=== PATIENT | male | born 1955 | race Caucasian/White ===

== ENCOUNTER 2023-10-12 09:49 | Outpatient (AMB) | payer OTHER, SELFPAY ==
--- NOTE | 2023-10-12 10:32 | A.OFFPC_ITS ---
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 Intake Note: Pt is here to est care pt see's [facility] Allergies Sulfa (Sulfonamide Antibiotics) Allergy (Intermediate, Verified 10/12/23 10:41) Hives Medication List - Last Reconciled 10/12/23 by Destinee Crespo MD aspirin (Adult Low Dose Aspirin) 81 mg PO DAILY cholecalciferol (vitamin D3) 25 mcg PO DAILY diltiazem HCl 360 mg PO DAILY losartan 50 mg PO DAILY pravastatin 20 mg PO BEDTIME Tobacco use date assessed: 10/12/23 Fall risk assessment: No Falls in past year Last assessed Fall Risk: 10/12/23 Dental Screening Dental Screen Date: 10/12/23 Did you have a dental visit in the last 12 months?: No Did you have a dental problem in the last 6 months where you did not have access to dental care?: No Was dental information given to patient?: Patient has dentist 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 He has been feeling well, with no complaints of chest pain, no shortness of breath, no headache or lightheadedness. Has been compliant with taking his medications. He sees [facility], Dr. Seferino Glover twice a year for follow-up. He has had COVID vaccinations but has not yet had the current booster and has n ot yet had his flu vaccine. He has had PCV 23 in the past and up-to-date with Tdap in has had this Shingrix vaccination. [facility] Medical History (Updated 11/11/23 @ 06:03 by Destinee Crespo MD) History of echocardiogram History of cardioversion History of chronic atrial fibrillation Obesity (BMI 30-39.9) Screening for malignant neoplasm of colon performed Impaired fasting glucose Hyperlipidemia Essential hypertension Chronic atrial fibrillation Surgical History (Updated 10/12/23 @ 10:46 by Destinee Crespo MD) History of eye surgery Social History Housing: House Patient Tobacco Use Status: Former Tobacco user Quit Date: 20 years ago e-Cigarette/Vaping Use: Never Used Second Hand Smoke Exposure: No service: No Current occupational status: employed 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 1. Little interest or pleasure in doing things: not at all 2. Feeling down, depressed, or hopeless: not at all 3. Trouble falling or staying asleep, or sleeping too much: not at all 4. Feeling tired or having little energy: not at all 5. Poor appetite or overeating: not at all 6. Feeling bad about yourself - or that you are a failure or have let yourself or your family down: not at all 7. Trouble concentrating on things, such as reading the newspaper or watching television: not at all 8. Moving or speaking so slowly that other people could have noticed. Or the opposite - being so fidgety or restless that you have been moving around a lot more than usual: not at all 9. Thoughts that you would be better off or of hurting yourself in some way: not at all Total score: 0 Depression Screening Interpretation: Negative Depression Screening Done: Yes 33482 - PHQ-9 Billing: Yes Source: Developed by Drs. eZ Valerio, Celine Sandhu, Bryson Dupree and colleagues, with an educational chantell from [employer]. Thrive Questionnaire Date Thrive assessed: 10/12/23 I am a: Patient What is your living situation today?: I have a steady place to live Within the past 12 months, did the food you bought not last and you didn't have the money to get more?: Never true Within the past 12 months, did you worry whether your food would run out before you got money to buy more?: Never true Do you have trouble paying for medicines?: No Do you have trouble getting transportation to medical appointments?: No Do you have trouble paying your heating and electricity bill?: No Do you have trouble taking care of your child, family member or friend?: No Do you have trouble with day-to-day activities such as bathing, preparing meals, shopping, managing finances, etc.?: No Are you currently unemployed and looking for a job?: No Are you interested in more education?: No AUDIT C Alcohol Use Questionnaire (AUDIT-C) 1. How often do you have a drink containing alcohol?: 2-3 times a week 2. How many drinks containing alcohol do you have on a typical day when you are drinking?: 1 or 2 3. How often do you have six or more drinks on one occasion?: Never Total Score: 3 PATRICIA-7 AMB Questionnaire PATRICIA-7 Date PATRICIA - 7 assessed: 10/12/23 Feeling nervous, anxious, or on edge: 0 = Not at all Not being able to stop or control worryin = Not at all Worrying too much about different things: 0 = Not at all Trouble relaxin = Not at all Being so restless that it is hard to sit still: 0 = Not at all Becoming easily annoyed or irritable: 0 = Not at all Feeling afraid as if something awful might happen: 0 = Not at all Total PATRICIA-7 score (0-4 normal; 5-9 mild; 10-14 moderate; 15-21 severe): 0 Source: Developed by Drs. Ze Valerio, Celine Sandhu, Bryson Dupree and colleagues, with an educational chantell from [employer]. PATRICIA-7 Assessment Billing PATRICIA-7 Assessment Tool: PATRICIA-7 Assessment 73801 Review of Systems Const Reports no additional complaints Eyes Details: seebobby Sakshi , referred to Dr Mccann at [facility] , to be scheduled for cataract surgery in 12/2023 ENT Reports no additional complaints Card Denies chest pain at rest, Denies chest pain with activity, Denies syncope, Denies rapid heart rate, Denies irregular heart rhythm and Denies lightheadedness Resp Reports no additional complaints GI Reports no additional complaints Reports no additional complaints Musc Reports no additional complaints Neuro Reports no additional complaints and Denies syncope Psych Reports no additional complaints Endo Reports no additional complaints Abelardo/Lymph Reports no additional complaints Aller/Immun Reports no additional complaints Physical exam (Primary Care) Vital Signs: Last Vital Signs Pulse 91 10/12/23 10:33 BP 135/78 10/12/23 10:33 Pulse Ox 97 10/12/23 10:33 Oxygen Delivery Method Room Air 10/12/23 10:33 BMI result Body Mass Index 38.3 Tobacco/Smoking Status: Tobacco use Status Tobacco use date assessed 10/12/23 10/12/23 10:42 Patient Tobacco Use Status Former Tobacco user 10/12/23 10:42 e-Cigarette/Vaping Use Never Used 10/12/23 10:42 PHQ-9: PHQ-9 Score PHQ-9: Total score 0 11/11/23 06:16 Depression Screening Interpretation: Negative Thrive Assessment: Date of Thrive Assessment Date Thrive assessed 10/12/23 10/12/23 10:49 Const General: no acute distress and alert Nutritional Appearance: obese Orientation/consciousness: patient oriented x3 HENMT Head: Yes normocephalic and Yes atraumatic Ears: external ears normal, TM's normal bilaterally and EAC's normal General nose exam: Normal external nose present and No nasal discharge present Face and sinus: Yes face symmetric Mouth: Normal oral and palatal mucosa present, lip normal, tongue normal, oropharynx normal and moist mucous membranes Eyes General: appearance normal, both eyes and all related structures Eyelids: Yes eyelids normal Conjunctivae: conjunctivae normal Sclerae: sclerae normal Pupils: Equal, round and reactive pupils present EOM: EOMs intact bilaterally Neck Neck: Yes full ROM, Yes no lymphadenopathy and Yes supple Thyroid: Thyroid normal (non-palpable) Resp Effort & Inspection: normal respiratory effort and able to speak in complete sentences Auscultation: clear to auscultation bilaterally Cardio Rate: regular rate Rhythm: regular rhythm Heart sounds: S1 normal heart sound present and S2 normal heart sound present GI Palpation (GI): Soft to palpation, nontender, no guarding and no masses Auscultation: normal bowel sounds General: Yes no CVA tenderness Back/Spine/Pelvis Back: no CVA tenderness and No back tenderness Skin General skin exam: no rashes or lesions noted Neuro General: patient oriented x3, gait normal, moves all extremities, Normal light touch and pain sensation, no focal motor deficits and CN's II-XI intact bilaterally Cranial nerves: Yes Equal, round and reactive pupils present Cognition (Neuro): normal cognition Gait exam (Neuro): Normal gait present Motor exam (neuro): 5/5 motor strength present throughout Extrem General: Yes normal to inspection, Yes full ROM, Yes no joint enlargement, Yes no pedal edema and Yes normal gait Psych Appearance: grossly normal and well kempt Mental Status: mental status grossly normal Speech and movement: Normal speech and movement present Affect: normal affect Attitude: cooperative Thought process: Normal thought process present Thought content: Normal thought content present Assessment and Plan Assessment & Plan (1) Impaired fasting glucose: Code(s): R73.01 - Impaired fasting glucose Plan: Impaired glucose metabolism O2 at risk for developing diabetes mellitus type 2, as well as heart attack and stroke later on. Lifestyle changes at just weight loss, healthy eating habits, and regular exercise are important, and can prevent the progression to diabetes (2) Hyperlipidemia: Code(s): E78.5 - Hyperlipidemia, unspecified Qualifiers: Hyperlipidemia type: pure hypercholesterolemia Qualified Code(s): E78.00 - Pure hypercholesterolemia, unspecified Plan: Continue with current dose of pravastatin 20 mg at bedtime, fasting lipid panel ordered (3) Essential hypertension: Code(s): I10 - Essential (primary) hypertension Plan: Blood pressure goal is less than 130/80. Continue with losartan 50 mg daily and diltiazem CD 3 60 mg daily. Reinforced importance of following a low sodium diet, getting regular exercise, and lowering stress levels. (4) Obesity (BMI 30-39.9): Code(s): E66.9 - Obesity, unspecified Plan: Discussed need to increase activity and weight reduction Recommended focusing on improving your health instead of dieting. : Eat Mediterranean diet, limit foods high in fat, sugar, and calories, eat slowly, pay attention to portion sizes, plan your meals ahead of time, start regular physical activity 150 minutes of moderate intensity exercise or 90 minutes/week of vigorous exercise and stay well-hydrated (5) History of chronic atrial fibrillation: Code(s): Z86.79 - Personal history of other diseases of the circulatory system Plan: Status post cardioversion , in sinus rhythm since cardioversion as noted on his medical record from previous PCP. Continue aspirin 81 mg per day, on diltiazem HCL 360 mg daily (6) History of cardioversion: Comment: 07/2022 normal sinus since cardioversion Code(s): Z92.89 - Personal history of other medical treatment (7) History of echocardiogram: Comment: 07/2022 LVEF: 55-60%; left atrium is moderately dilated , no aortic stenosis, trace MR, no mitral stenosis Code(s): Z92.89 - Personal history of other medical treatment Orders: Orders Alanine Aminotransferase 11/07/23 R73.01 - Impaired fasting glucose, E66.9 - Obesity, unspecified, E78.5 - Hyperlipidemia, unspecified, I10 - Essential (primary) hypertension, Z12.5 - Encounter for screening for malignant neoplasm of prostate Hemoglobin A1c 11/07/23 R73.01 - Impaired fasting glucose, E66.9 - Obesity, uns pecified, E78.5 - Hyperlipidemia, unspecified, I10 - Essential (primary) hypertension, Z12.5 - Encounter for screening for malignant neoplasm of prostate Vitamin D 25-OH Total 11/07/23 R73.01 - Impaired fasting glucose, E66.9 - Obesity, unspecified, E78.5 - Hyperlipidemia, unspecified, I10 - Essential (primary) hypertension, Z12.5 - Encounter for screening for malignant neoplasm of prostate PSA,Total (Free>4and<10) 11/07/23 R73.01 - Impaired fasting glucose, E66.9 - Obesity, unspecified, E78.5 - Hyperlipidemia, unspecified, I10 - Essential (primary) hypertension, Z12.5 - Encounter for screening for malignant neoplasm of prostate Complete Blood Count Auto Diff 11/07/23 R73.01 - Impaired fasting glucose, E66.9 - Obesity, unspecified, E78.5 - Hyperlipidemia, unspecified, I10 - Essential (primary) hypertension, Z12.5 - Encounter for screening for malignant neoplasm of prostate Aspartate Amino Transferase 11/07/23 R73.01 - Impaired fasting glucose, E66.9 - Obesity, unspecified, E78.5 - Hyperlipidemia, unspecified, I10 - Essential (primary) hypertension, Z12.5 - Encounter for screening for malignant neoplasm of prostate Basic Metabolic Panel Fasting 11/07/23 R73.01 - Impaired fasting glucose, E66.9 - Obesity, unspecified, E78.5 - Hyperlipidemia, unspecified, I10 - Essential (primary) hypertension, Z12.5 - Encounter for screening for malignant neoplasm of prostate Lipid Panel 11/07/23 R73.01 - Impaired fasting glucose, E66.9 - Obesity, unspecified, E78.5 - Hyperlipidemia, unspecified, I10 - Essential (primary) hypertension, Z12.5 - Encounter for screening for malignant neoplasm of prostate Coding Level of Care Code New Pt Level 3 (63194) Diagnoses Impaired fasting glucose R73.01 Pure hypercholesterolemia E78.00 Hyperlipidemia type: pure hypercholesterolemia Essential hypertension I10 Obesity (BMI 30-39.9) E66.9 History of chronic atrial fibrillation Z86.79 History of cardioversion Z92.89 History of echocardiogram Z92.89 Additional Codes PATRICIA-7 Assessment Billing - PATRICIA-7 Assessment Tool: PATRICIA-7 Assessment 12073 ([id number])
[2023-10-12 10:33] VITALS: BP 135/78; PULSE 91; O2SAT 97; BMI 38.3
== END 2023-10-12 11:13 | disposition home or self-care (01) ==
PROVIDERS: PCP Internal Medicine; Visit Provider Internal Medicine
DX: R73.01 Impaired fasting glucose (principal); E66.9 Obesity, unspecified; Z68.38 Body mass index [BMI] 38.0-38.9, adult; E78.00 Pure hypercholesterolemia, unspecified; I10 Essential (primary) hypertension; Z86.79 Personal history of other diseases of the circulatory system; Z92.89 Personal history of other medical treatment
CPT/HCPCS: 99203

== ENCOUNTER 2023-11-25 06:08 | Outpatient (REF) | payer OTHER, SELFPAY ==
[2023-11-25 11:34] LABS: MANUAL DIFF FLAG NO
[2023-11-25 12:06] LABS: Basophils Absolute Auto 0.1 X10*3/uL (0.0-0.2); Basophils Percent Auto 1.3 % (0-2); Eosinophils Absolute Auto 0.4 X10*3/uL (0.0-0.4); Eosinophils Percent Auto 5.7 % (0-4); Hematocrit 49.1 % (42.0-52.0); Hemoglobin 15.9 g/dl (14.0-18.0); Imm Gran Abs Auto 0.02 X10*3/uL (0.00-0.03); Imm Gran Pct Auto 0.3 % (0.0-0.4); Lymphocytes Absolute Auto 1.8 X10*3/uL (1.2-4.9); Lymphocytes Percent Auto 26.5 % (20-40); Mean Corpuscular HGB Conc 32.4 g/dl (31.0-36.0); Mean Corpuscular Hemoglobin 28.8 pg (27.0-33.0); Mean Corpuscular Volume 88.9 fL (80.0-98.0); Mean Platelet Volume 11.7 fL (9.4-12.4); Monocytes Absolute Auto 0.6 X10*3/uL (0.1-1.2); Monocytes Percent Auto 8.6 % (2-11); Neutrophils Absolute Auto 3.9 x10*3/uL (2.0-8.3); Neutrophils Percent Auto 57.6 % (45-73); Platelet Count 215 X10*3/uL (160-400); Red Blood Count 5.52 X10*6/uL (4.60-5.80); Red Cell Distribution Width 14.1 % (11.0-16.0); White Blood Count 6.8 X10*3/uL (4.8-10.8)
[2023-11-25 12:15] LABS: Estimated Average Glucose 108 mg/dL; Hemoglobin A1c % 5.4 % (<6.0)
[2023-11-25 12:30] LABS: Alanine Aminotransferase 24 U/L (0-40); Anion Gap 16 (12-20); Aspartate Amino Transferase 18 U/L (5-37); Blood Urea Nitrogen 12 mg/dL (9-16); Calcium 10.4 mg/dL (8.4-10.2); Carbon Dioxide 27 mmol/L (22-29); Chloride 102 mmol/L (96-108); Cholesterol 175 mg/dL (<200); Estimated Glomerular Filt Rate > 60; Glucose Fasting 102 mg/dL (60-99); HDL Cholesterol 64 mg/dL (>40); LDL Cholesterol Calculated 94 mg/dL (<100); Potassium 4.9 mmol/L (3.3-5.1); Sodium 140 mmol/L (135-145); Triglycerides 86 mg/dL (<150)
[2023-11-25 12:33] LABS: Vitamin D 25-OH Total 25.9 ng/mL (>30)
== END 2023-11-25 06:09 | disposition home or self-care (01) ==
LOC: HO.HMGCLDS 06:08
PROVIDERS: PCP Internal Medicine; Visit Provider Internal Medicine
DX: Z12.5 Encounter for screening for malignant neoplasm of prostate (principal); E66.9 Obesity, unspecified; R73.01 Impaired fasting glucose; I10 Essential (primary) hypertension; E78.5 Hyperlipidemia, unspecified
CPT/HCPCS: 36415; 80048; 80061; 82306; 83036; 84153; 84450; 84460; 85025

== ENCOUNTER 2023-12-15 11:16 | Outpatient (AMB) | payer OTHER, SELFPAY ==
[2023-12-15 11:39] VITALS: BP 145/80; PULSE 97; O2SAT 97; BMI 38.9
--- NOTE | 2023-12-15 11:39 | A.OFFPC_ITS ---
Vital Signs 12/15/23 11:39 Height 5 ft 8 in Weight 256 lb BMI 38.9 BP 145/80 H Blood Pressure Location Lt brachial Position Sitting Pulse 97 Pulse Source Pulse Oximeter Pulse Oximetry (%) 97 Oxygen Delivery Method Room Air Intake Visit Reasons: cataract 12/30/23 & 01/12/24 Intake Note: Pt is here today for his pre-op Lt eye cataract surgery 12/30/23 & Rt eye cataract 01/12/[address] Mccann at [facility] Allergies Sulfa (Sulfonamide Antibiotics) Allergy (Intermediate, Verified 12/15/23 12:10) Hives Medication List - Last Reconciled 12/15/23 by Destinee Crespo MD aspirin (Adult Low Dose Aspirin) 81 mg PO DAILY cholecalciferol (vitamin D3) 1,250 mcg PO QWEEK 3 months diltiazem HCl 360 mg PO DAILY losartan 50 mg PO DAILY pravastatin 40 mg PO BEDTIME Tobacco use date assessed: 12/15/23 Last assessed Fall Risk: 12/15/23 Dental Screening Dental Screen Date: 12/15/23 Did you have a dental visit in the last 12 months?: No Was dental information given to patient?: Patient has dentist HPI cataract 12/30/23 & 01/12/24 HPI Details 68-year-old male with hypertension, hype rlipidemia, history of chronic atrial fibrillation status post cardioversion, now in normal sinus rhythm and only taking aspirin 81 mg daily, here today for preoperative exam for Lt eye cataract surgery 12/30/23 & Rt eye cataract 01/12/[address] Mccann at [facility]. He has been feeling well, with no complaints of any chest pain, no shortness of breath, no lightheadedness or generalized weakness. 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 Depression Screening Interpretation: Negative Depression Screening Done: Yes Source: Developed by Drs. Ze Valerio, Celine Sandhu, Bryson Dupree and colleagues, with an educational chantell from [employer]. Thrive Questionnaire Date Thrive assessed: 10/12/23 AUDIT C Alcohol Use Questionnaire (AUDIT-C) 1. How often do you have a drink containing alcohol?: 4 or more times a week 2. How many drinks containing alcohol do you have on a typical day when you are drinking?: 1 or 2 3. How often do you have six or more drinks on one occasion?: Never Total Score: 4 PATRICIA-7 AMB Questionnaire PATRICIA-7 Date PATRICIA - 7 assessed: 10/12/23 Feeling nervous, anxious, or on edge: 0 = Not at all Not being able to stop or control worryin = Not at all Worrying too much about different things: 0 = Not at all Trouble relaxin = Not at all Being so restless that it is hard to sit still: 0 = Not at all Becoming easily annoyed or irritable: 0 = Not at all Feeling afraid as if something awful might happen: 0 = Not at all Total PATRICIA-7 score (0-4 normal; 5-9 mild; 10-14 moderate; 15-21 severe): 0 Source: Developed by Drs. Ze Valerio, Celine Sandhu, Bryson Dupree and colleagues, with an educational chantell from [employer]. Review of Systems Const Reports no additional complaints Eyes Details: sees Sakshi , referred to Dr Mccann at [facility] , to be scheduled for cataract surgery in 12/2023 ENT Reports no additional complaints Card Denies chest pain at rest, Denies chest pain with activity, Denies syncope, Denies rapid heart rate, Denies irregular heart rhythm and Denies lightheadedness Resp Reports no additional complaints GI Reports no additional complaints Reports no additional complaints Musc Reports no additional complaints Skin/Breast Denies lesions, Denies rash and Denies unusual bruising Neuro Reports no additional complaints and Denies syncope Psych Reports no additional complaints Endo Reports no additional complaints Abelardo/Lymph Reports no additional complaints Aller/Immun Reports no additional complaints Physical exam (Primary Care) Vital Signs: Last Vital Signs Pulse 97 12/15/23 11:39 BP 145/80 H 12/15/23 11:39 Pulse Ox 97 12/15/23 11:39 Oxygen Delivery Method Room Air 12/15/23 11:39 BMI result Body Mass Index 38.9 Tobacco/Smoking Status: Tobacco use Status Tobacco use date assessed 12/15/23 12/15/23 11:42 Patient Tobacco Use Status Former Tobacco user 12/15/23 11:42 e-Cigarette/Vaping Use Never Used 12/15/23 11:42 Depression Screening Interpretation: Negative Thrive Assessment: Date of Thrive Assessment Date Thrive assessed 10/12/23 12/15/23 11:42 Const General: no acute distress and alert Nutritional Appearance: obese Orientation/consciousness: patient oriented x3 HENMT Head: Yes normocephalic and Yes atraumatic Ears: external ears normal, TM's normal bilaterally and EAC's normal General nose exam: Normal external nose present and No nasal discharge present Face and sinus: Yes face symmetric Mouth: Normal oral and palatal mucosa present, lip normal, tongue normal, oropharynx normal and moist mucous membranes Eyes General: appearance normal, both eyes and all related structures Eyelids: Yes eyelids normal Conjunctivae: conjunctivae normal Sclerae: sclerae normal Pupils: Equal, round and reactive pupils present EOM: EOMs intact bilaterally Neck Neck: Yes full ROM, Yes no lymphadenopathy and Yes supple Thyroid: Thyroid normal (non-palpable) Resp Effort & Inspection: normal respiratory effort and able to speak in complete sentences Auscultation: clear to auscultation bilaterally Cardio Rate: regular rate Rhythm: regular rhythm Heart sounds: S1 normal heart sound present and S2 normal heart sound present GI Palpation (GI): Soft to palpation, nontender, no guarding and no masses Auscultation: normal bowel sounds General: Yes no CVA tenderness Back/Spine/Pelvis Back: no CVA tenderness and No back tenderness Skin General skin exam: no rashes or lesions noted Neuro General: patient oriented x3, gait normal, moves all extremities, Normal light touch and pain sensation, no focal motor deficits and CN's II-XI intact bilaterally Cranial nerves: Yes Equal, round and reactive pupils present Cognition (Neuro): normal cognition Gait exam (Neuro): Normal gait present Motor exam (neuro): 5/5 motor strength present throughout Extrem General: Yes normal to inspection, Yes full ROM, Yes no joint enlargement, Yes no pedal edema and Yes normal gait Psych Appearance: grossly normal and well kempt Mental Status: mental status grossly normal Speech and movement: Normal speech and movement present Affect: normal affect Attitude: cooperative Thought process: Normal thought process present Thought content: Normal thought content present Results Reviewed Results Reviewed: SPEC : [id number] JOSE: 11/25/23 STATUS: COMP REQ : [id number] RECD: 11/25/[address]: Destinee Crespo MD COMP: 11/25/23 ENTERED: 11/25/23 [facility] DR: ORDERED: CBC Auto Diff Test Result Flag Reference WBC 6.8 4.8-10.8 X10*3/uL RBC 5.52 4.60-5.80 X10*6/uL HGB 15.9 14.0-18.0 g/dl HCT 49.1 42.0-52.0 % MCV 88.9 80.0-98.0 fL MCH 28.8 27.0-33.0 pg MCHC 32.4 31.0-36.0 g/dl RDW 14.1 11.0-16.0 % PLT 215 160-400 X10*3/uL MPV 11.7 9.4-12.4 fL Neut Pct Auto 57.6 45-73 % ImGran Pct Auto 0.3 0.0-0.4 % Lymp Pct Auto 26.5 20-40 % Bay Pct Auto 8.6 2-11 % Eos Pct Auto 5.7 H 0-4 % Baso Pct Auto 1.3 0-2 % NRBC Pct Auto 0.0 0.0-0.2 /100WBC ANC Neut Abs # 3.9 2.0-8.3 x10*3/uL ImGran Abs Auto 0.02 0.00-0.03 X10*3/uL Lymph Abs Auto 1.8 1.2-4.9 X10*3/uL Bay Abs Auto 0.6 0.1-1.2 X10*3/uL Eos Abs Auto 0.4 0.0-0.4 X10*3/uL Baso Abs Auto 0.1 0.0-0.2 X10*3/uL NRBC Abs Auto 0.000 0.0-0.012 X10*3/uL RUN: 12/15/23 1219 PAGE 1 [facility] [address] [place] [id number] Director Cloud Transformation: Diogo Benitez M.D. Specimen Inquiry Name: Lisandro Deal Age/Sex: 68/M : 1955 Unit#: [id number] Attend Dr: Destinee Crespo MD Re11/25/23 Status: DEP REF Location: [facility] Disch: SPEC : [id number] JOSE: 11/25/23 STATUS: COMP REQ : [id number] RECD: 11/25/[address]: Destinee Crespo MD COMP: 11/25/23 ENTERED: 11/25/[address]: ORDERED: Met Prof Fast, AST, ALT, Lipid Panel, Vitamin D 25-OH Test Result Flag Reference Sodium 140 135-145 mmol/L Potassium 4.9 3.3-5.1 mmol/L CL 102 96-108 mmol/L CO2 27 22-29 mmol/L Gap 16 12-20 BUN 12 9-16 mg/dL Creat 1.03 0.5-1.4 mg/dL EGFR > 60 NOTE: For -[place] individuals, multiply the result by 1.210. Chronic Kidney Disease: Estimated GFR < 60 mL/min/1.73m2 Severe Kidney Disease: Estimated GFR < 15 mL/min/1.73m2 FBS 102 H 60-99 mg/dL A fasting glucose from 100-125 mg/dl is considered impaired (pre-diabetes). CA 10.4 H 8.4-10.2 mg/dL AST (GOT) 18 5-37 U/L ALT (GPT) 24 0-40 U/L Triglyceride 86 <150 mg/dL Desirable Triglyceride: less than 150 mg/dL Borderline High Triglyceride 150-199 mg/dL High Triglyceride: 200-499 mg/dL Very High Triglyceride: greater than or equal to 5OO mg/dL Cholesterol 175 <200 mg/dL Desirable Cholesterol: less than 200 mg/dL Borderline High Cholesterol: 200-239 mg/dL High Cholesterol: greater than 239 mg/dL LDL Calculated 94 <100 mg/dL Desirable LDL: less than 100 mg/dL Near Optimal/Above Optimal LDL: 110-129 mg/dL Borderline High LDL: 130-159 mg/dL High LDL: 160-189 mg/dL Very High LDL: greater than or equal to 190 mg/dL HDL 64 >40 mg/dL Desirable HDL: greater than 40 mg/dL Note: This HDL assay may give artificially low results in patients with liver disease. Vit D 25-OH Tot 25.9 L >30 ng/mL Health Based Reference Values* < 20 ng/mL Deficient 20-30 ng/mL Insufficient > 30 ng/mL Sufficient Assessment and Plan Assessment & Plan (1) Preoperative examination: Code(s): Z01.818 - Encounter for other preprocedural examination Plan: 68 year old male here for pre-op clearance for cataract surgery, to be done by Dr. Rodriguez. He has hypertension, hyperlipidemia currently stable controlled on present treatment, has history of chronic atrial fibrillation status post cardioversion now in normal sinus rhythm and only taking aspirin 81 mg daily. He had a normal preoperative exam, EKG done today showed normal sinus rhythm with occasional premature ventricular contractions, with a rate of 83 beats per minute , no acute ST-T changes seen. Patient with a low cardiac risk index for proposed surgery , no need to discontinue aspirin 81 mg prior to surgery (2) History of chronic atrial fibrillation: Code(s): Z86.79 - Personal history of other diseases of the circulatory system Plan: Continue aspirin 81 mg daily, patient now on normal sinus rhythm currently on diltiazem and losartan (3) Hyperlipidemia: Code(s): E78.5 - Hyperlipidemia, unspecified Qualifiers: Hyperlipidemia type: pure hypercholesterolemia Qualified Code(s): E78.00 - Pure hypercholesterolemia, unspecified Plan: Fasting lipid panel are within normal limits, continued on pravastatin 40 mg at bedtime, in addition to continuing following a low-cholesterol diet and getting regular exercise. Repeat another fasting lipid panel in April 2024, prior to next appoint (4) Essential hypertension: Code(s): I10 - Essential (primary) hypertension Plan: Blood pressure goal is less than 130/80. Continue on diltiazem and losartan. Reinforced importance of following a low sodium diet, getting regular exercise, and lowering stress levels. (5) Cataract: Code(s): H26.9 - Unspecified cataract Qualifiers: Cataract type: age-related Age-related cataract type: unspecified Laterality: bilateral Qualified Code(s): H25.9 - Unspecified age-related cataract Plan: Scheduled for cataract surgery, requested by Dr. Mccann (6) History of cardioversion: Comment: 07/2022 normal sinus since cardioversion Code(s): Z92.89 - Personal history of other medical treatment Orders: Orders Aspartate Amino Transferase 04/30/24 E66.9 - Obesity, unspecified, E78.5 - Hyperlipidemia, unspecified, I10 - Essential (primary) hypertension, R73.01 - Impaired fasting glucose, Z12.5 - Encounter for screening for malignant neoplasm of prostate, Z86.79 - Personal history of other diseases of the circulatory system Lipid Panel 04/30/24 E66.9 - Obesity, unspecified, E78.5 - Hyperlipidemia, unspecified, I10 - Essential (primary) hypertension, R73.01 - Impaired fasting glucose, Z12.5 - Encounter for screening for malignant neoplasm of prostate, Z86.79 - Personal history of other diseases of the circulatory system PSA,Total (Free>4and<10) 04/30/24 E66.9 - Obesity, unspecified, E78.5 - Hyperlipidemia, unspecified, I10 - Essential (primary) hypertension, R73.01 - Impaired fasting glucose, Z12.5 - Encounter for screening for malignant neoplasm of prostate, Z86.79 - Personal history of other diseases of the circulatory system Alanine Aminotransferase 04/30/24 E66.9 - Obesity, unspecified, E78.5 - Hyperlipidemia, unspecified, I10 - Essential (primary) hypertension, R73.01 - Impaired fasting glucose, Z12.5 - Encounter for screening for malignant neoplasm of prostate, Z86.79 - Personal history of other diseases of the circulatory system Basic Metabolic Panel Fasting 04/30/24 E66.9 - Obesity, unspecified, E78.5 - Hyperlipidemia, unspecified, I10 - Essential (primary) hypertension, R73.01 - Impaired fasting glucose, Z12.5 - Encounter for screening for malignant neoplasm of prostate, Z86.79 - Personal history of other diseases of the circulatory system Vitamin D 25-OH Total 04/30/24 E66.9 - Obesity, unspecified, E78.5 - Hyperlipidemia, unspecified, I10 - Essential (primary) hypertension, R73.01 - Impaired fasting glucose, Z12.5 - Encounter for screening for malignant neoplasm of prostate, Z86.79 - Personal history of other diseases of the circulatory system Coding Level of Care Code Est Pt Level 4 (87300) Diagnoses Preoperative examination Z01.818 History of chronic atrial fibrillation Z86.79 Pure hypercholesterolemia E78.00 Hyperlipidemia type: pure hypercholesterolemia Essential hypertension I10 Age-related cataract of both eyes, unspecified age-related cataract type H25.9 Cataract type: age-related Age-related cataract type: unspecified Laterality: bilateral History of cardioversion Z92.89
== END 2023-12-15 12:47 | disposition home or self-care (01) ==
PROVIDERS: PCP Internal Medicine; Visit Provider Internal Medicine
DX: Z01.818 Encounter for other preprocedural examination (principal); Z86.79 Personal history of other diseases of the circulatory system; E78.00 Pure hypercholesterolemia, unspecified; I10 Essential (primary) hypertension; H25.9 Unspecified age-related cataract; Z92.89 Personal history of other medical treatment
CPT/HCPCS: 99214

== ENCOUNTER 2024-03-13 12:29 | Outpatient (AMB) | payer OTHER, SELFPAY ==
[2024-03-13 12:32] VITALS: BP 130/80; PULSE 85; TEMP 36.3; O2SAT 97; BMI 37.7
--- NOTE | 2024-03-13 12:32 | AM.OFFWIN_ITS ---
Intake Vital Signs 03/13/24 12:32 Height 5 ft 8 in Weight 248 lb BMI 37.7 BP 130/80 Blood Pressure Location Lt brachial Position Sitting Pulse 85 Pulse Source Pulse Oximeter Temp 97.3 F Temp Source Temporal Artery Scan Pulse Oximetry (%) 97 Oxygen Delivery Method Room Air Intake Visit Reasons: Est/wheezing, nasal drip (lobby) Intake Note: pt is here today for wheezing and nasal drip started 3 dayd ago Patient Tobacco Use Status: Former Tobacco user Quit Date: 20 years ago Allergies Sulfa (Sulfonamide Antibiotics) Allergy (Intermediate, Verified 03/13/24 13:07) Hives Medication List - Last Reconciled 03/13/24 by LIZET Ray cholecalciferol (vitamin D3) 1,250 mcg PO QWEEK 3 months diltiazem HCl CD 360 mg PO DAILY diltiazem HCl ER 360 mg PO DAILY ketorolac 0.5% 1 drp ophthalmic (eye) losartan 50 mg PO DAILY pravastatin 40 mg PO DAILY rivaroxaban (Xarelto) 20 mg PO DAILY Do you need a note to return to daycare/school/sports/work: No HPI HPI Comments History of Present Illness Details Patient is a 68-year-old male in today for a sick visit. He states for the past 3 days he has developed symptoms of wheeze, cough, nasal discharge. He states that he is having some shortness of breath when he was walking up and down stairs, and recently on a vacation where he was hiking and mountain. Denies sick contacts. Denies chest pain, shortness a breath, headache, nausea, vomiting, diarrhea. Patient denies numbness or tingling. Has a past medical history significant for hypertension, hyperlipidemia, AFib, vitamin-D deficiency. A physical exam patient has erythema and cobblestoning throat. TM intact pearly baer. Clear nasal discharge. No lymphadenopathy. Breath sounds have bilateral upper wheeze. Patient is currently in AFib, which is his baseline. 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 Cognitive needs: No Hearing needs: No Vision needs: Yes Review of Systems Const All systems reviewed & are unremarkable except as noted in HPI and below Denies chills, Denies fatigue and Denies fever(s) ENT Denies dizziness, Denies otalgia, Reports nasal discharge, Reports post nasal drip and Reports sore throat Card Denies chest pain and Denies dyspnea Resp Reports cough, Denies dyspnea and Reports wheezing GI Denies diarrhea, Denies nausea and Denies vomiting Neuro Denies dizziness Endo Denies fatigue Aller/Immun Reports wheezing Physical Exam Vital Signs: Last Vital Signs Temp 97.3 F 03/13/24 12:32 Pulse 85 03/13/24 12:32 BP 130/80 03/13/24 12:32 Pulse Ox 97 03/13/24 12:32 Oxygen Delivery Method Room Air 03/13/24 12:32 BMI result Body Mass Index 37.7 Const Other: Appearance: Alert.? Oriented X3.? No acute distress.? Head: Normocephalic, atraumatic. Eyes: Pupils equal, round and reactive to light.? ENT: Pharynx erythema. +clear nasal discharge, +Post nasal drip. TM intact and pearly baer. Neck: Normal inspection.? Neck supple.?Full ROM. CVS: Normal heart rate and rhythm.? Pulses normal.? Respiratory: No respiratory distress.? Bilateral wheeze upper lobes. Neuro: Oriented X 3.? No motor deficit.? No sensory deficit. CN 2-12 intact Assessment & Plan Assessment & Plan (1) Upper respiratory infection: Comment: Patient had in office URI swab. Will give patient prednisone albuterol to be taken as directed. Patient has been educated on side effects of this medic ation. Patient has been educated on signs of worsening symptoms and when to report to the walk-in or when to present to the ED. Code(s): J06.9 - Acute upper respiratory infection, unspecified Qualifiers: URI type: unspecified URI Qualified Code(s): J06.9 - Acute upper respiratory infection, unspecified Plan: Take your medications as prescribed. If you were prescribed antibiotics today, it is important that you take your medication to their entirety, do not skip any doses, do not finish them early. Follow-up with your primary care provider this week. Return to the emergency department with new or worsening symptoms. Such as fevers, chills, chest pain, shortness of breath, nausea, vomiting, dizziness, headache, vision changes, lethargy In case of emergency call 911 Plan Follow-up with PCP. Orders: Orders SARS-CoV2/FLU/RSV Today J06.9 - Acute upper respiratory infection, unspecified Medications: New prednisone 40 mg (2 x 20 mg) PO DAILY 10 tabs 0RF albuterol sulfate 90 mcg/actuation 2 puffs inhalation Q6H PRN 6.7 grams 0RF shortness of breath or wheezing Coding Level of Care Code Est Pt Level 3 (83877) Diagnoses Upper respiratory tract infection, unspecified type J06.9 URI type: unspecified URI Time Spent (min) 27
== END 2024-03-13 13:22 | disposition home or self-care (01) ==
PROVIDERS: PCP Internal Medicine; Visit Provider Nurse Practitioner Primary Care
DX: J06.9 Acute upper respiratory infection, unspecified (principal)
CPT/HCPCS: 99213

== ENCOUNTER 2024-03-13 16:18 | Outpatient (REF) | payer OTHER, SELFPAY ==
[2024-03-13 17:06] LABS: Influenza A PCR NEGATIVE (Negative); Influenza B PCR NEGATIVE (Negative); Resp Syncy Virus RNA Qual PCR NEGATIVE (Negative); SARS COV2 PCR INHOUSE NEGATIVE (Negative)
== END 2024-03-13 16:19 | disposition home or self-care (01) ==
LOC: HO.LNP 16:18
PROVIDERS: Visit Provider Nurse Practitioner Primary Care
DX: J06.9 Acute upper respiratory infection, unspecified (principal)
CPT/HCPCS: 0241U

== ENCOUNTER 2024-03-17 09:41 | Outpatient (AMB) | payer OTHER, SELFPAY ==
[2024-03-17 10:57] VITALS: BP 140/80; PULSE 71; TEMP 36.7; BMI 37.4
--- NOTE | 2024-03-17 10:57 | MHC.OFFWIV ---
Intake Vital Signs 03/17/24 10:57 Height 5 ft 8 in Weight 246 lb BMI 37.4 BP 140/80 H Blood Pressure Location Lt brachial Position Sitting Pulse 71 Pulse Source Pulse Oximeter Temp 98.1 F Temp Source Oral Intake Visit Reasons: EP wheezing coughing Intake Note: Pt is here today c/o wheezing and coughing Patient Tobacco Use Status: Former Tobacco user Quit Date: 20 years ago Allergies Sulfa (Sulfonamide Antibiotics) Allergy (Intermediate, Verified 03/17/24 10:59) Hives HPI EP wheezing coughing HPI Details Patient is a 68-year-old male with cardiovascular history who comes to the walk-in clinic complaining of persistent productive cough and mild shortness of breath due to the coughing fits. He reports that he was put on a short course steroid for respiratory illness, which mildly relieved symptoms. He denies underlying respiratory issues. He also denies chest pain, persistent shortness of breath, fever or chills, weakness or dizziness, myalgias or malaise, nausea vomiting or diarrhea, sore throat, sinus pressure, or other significant associated symptoms. [facility] Medical History Cataract History of echocardiogram History of cardioversion History of chronic atrial fibrillation Obesity (BMI 30-39.9) Screening for malignant neoplasm of colon performed Impaired fasting glucose Hyperlipidemia Essential hypertension Chronic atrial fibrillation Surgical History History of eye surgery Social History Housing: House Patient Tobacco Use Status: Former Tobacco user e-Cigarette/Vaping Use: Never Used Second Hand Smoke Exposure: No service: No Current occupational status: employed Current occupation: [employer] Current occupational exposures/hazards: No Cognitive needs: No Hearing needs: No Vision needs: Yes Review of Systems Const All systems reviewed & are unremarkable except as noted in HPI and below Physical Exam Vital Signs: Last Vital Signs Temp 98.1 F 03/17/24 10:57 Pulse 71 03/17/24 10:57 BP 140/80 H 03/17/24 10:57 BMI result Body Mass Index 37.4 Const General: cooperative, comfortable, no acute distress, alert, awake, Physically active and well groomed; No anxious, diaphoretic, intoxicated appearing, poor hygiene or tired appearing Limitations: no limitations HEENT Head: Yes normal to inspection, Yes normocephalic and Yes atraumatic Ears: hearing grossly normal bilaterally, external ears normal, TM's normal bilaterally and EAC's normal General nose exam: Normal external nose present, Normal nasal mucous membranes and turbinates present, Normal septum present and No nasal discharge present Face and sinus: Yes normal facial exam, Yes sinuses nontender and Yes face symmetric Mouth: Normal oral and palatal mucosa present, lip normal and tongue normal Throat: Yes posterior oropharynx normal, No peritonsillar mass, No postnasal drainage, No uvular edema and No cobblestoning Eyes General: appearance normal, both eyes and all related structures Neck Neck: Yes normal visual inspection, Yes full ROM, Yes no lymphadenopathy, Yes trachea midline, Yes supple and No anterior neck swelling Chest Chest palpation & inspection: normal palpation of entire chest wall Resp Effort & Inspection: normal respiratory effort, able to speak in complete sentences, normal respiratory pattern, no audible wheezes, Actively coughing, no grunting, not labored, no nasal flaring, no paradoxical thoraco-abdom movements, no pursed lip breathing, no respiratory distress, no retractions, no stridor, not tachypneic, no tracheal deviation, no tripod positioning, No prolonged expiratory phase and symmetric chest movement Auscultation: clear to auscultation bilaterally, no crackles, no rales, rhonchi, no wheezes, diminished lung sounds and No rub present Cardio Rate: regular rate Skin Other: Good color, warm and dry Psych Appearance: grossly normal Mental Status: mental status grossly normal Speech and movement: Normal speech and movement present Affect: normal affect Attitude: cooperative Thought process: Normal thought process present Insight: Good insight present (Psych) Judgement: Good judgement present (Psych) Results Reviewed Results Reviewed: Left basilar atelectasis on x-ray today per my wet read, pending radiologist's results Assessment & Plan Assessment & Plan (1) Lower respiratory tract infection: Code(s): J22 - Unspecified acute lower respiratory infection Plan Patient is a 68-year-old male with cardiovascular history who has had persistent productive cough and mild shortness of breath due to coughing fits despite being put on a short course steroid for respiratory illness. He appears to have a rhonchorous cough persisting, and likely had bronchitis, however I am concerned that he has developing a early pneumonia, with some haziness visualized on his chest x-ray today on the left side. Therefore I will extend his steroid course, and he can start Augmentin and azithromycin. We also discussed trialing guaifenesin with adequate fluid intake. He knows to follow up if symptoms persist or worsen, or go to the emergency department with worrisome symptoms. Orders: Orders XR chest 2V 03/17/24 R05.9 - Cough, unspecified Medications: New azithromycin take 500 mg today (day 1), then 250 mg for 4 days (days 2-5) PO 6 tabs 0RF guaifenesin 400 mg PO TID PRN 30 tabs 1RF congestion amoxicillin-pot clavulanate 875-125 mg 1 tab PO BID 10 tabs 0RF 5 days prednisone then take 3 tabs for 3 days, then 2 tabs for 3 days, then 1 tab for 3 days. 40 mg (4 x 10 mg) PO DAILY 30 tabs 0RF 3 days Coding Level of Care Code Est Pt Level 4 (45876) Diagnoses Lower respiratory tract infection J22
== END 2024-03-17 12:42 | disposition home or self-care (01) ==
PROVIDERS: PCP Internal Medicine; Visit Provider Physician Assistant Medical
DX: J22 Unspecified acute lower respiratory infection (principal)
CPT/HCPCS: 99214

== ENCOUNTER 2024-03-17 11:44 | Outpatient (REF) | payer OTHER, SELFPAY ==
--- NOTE | ~2024-03-17 | XR_ITS ---
EXAMINATION: XR CHEST CLINICAL INFORMATION: Cough unspecified COMPARISON: None available. TECHNIQUE: 2 views of the chest were obtained. FINDINGS: Slight left basilar atelectasis. No pneumothorax. Trachea is midline. Cardiac mediastinal silhouette is not enlarged. No large pleural effusion. Osseous structures are intact. Soft tissues are unremarkable. XR/XR chest 2V IMPRESSION: Slight left basilar atelectasis.
== END 2024-03-17 11:45 | disposition home or self-care (01) ==
LOC: HO.HMGCX 11:44
PROVIDERS: PCP Internal Medicine; Visit Provider Physician Assistant Medical
DX: R05.9 Cough, unspecified (principal)
CPT/HCPCS: 71046

== ENCOUNTER 2024-05-09 09:18 | Outpatient (AMB) | payer OTHER, SELFPAY ==
--- NOTE | 2024-05-09 09:26 | A.OFFPC_ITS ---
Vital Signs 05/09/24 09:28 Height 5 ft 8 in Weight 236 lb BMI 35.9 BP 122/80 Blood Pressure Location Lt brachial Position Sitting Pulse 100 Pulse Source Palpation Pulse Oximetry (%) 97 Oxygen Delivery Method Room Air Comment Irregularly irregular pulse Intake Visit Reasons: Annual PE Intake Note: Pt is here today for his PE Allergies Sulfa (Sulfonamide Antibiotics) Allergy (Intermediate, Verified 05/09/24 09:37) Hives Medication List - Last Reconciled 05/09/24 by Destinee Crespo MD amiodarone 200 mg PO BID cholecalciferol (vitamin D3) 25 mcg PO DAILY diltiazem HCl ER 360 mg PO DAILY losartan 50 mg PO DAILY pravastatin 40 mg PO DAILY rivaroxaban (Xarelto) 20 mg PO DAILY Tobacco use date assessed: 05/09/24 Fall risk assessment: No Falls in past year Last assessed Fall Risk: 05/09/24 Dental Screening Dental Screen Date: 05/09/24 Did you have a dental visit in the last 12 months?: No Did you have a dental problem in the last 6 months where you did not have access to dental care?: No Was dental information given to patient?: Patient has dentist HPI Annual PE HPI Details 68-year-old male here today for physical exam. He has chronic atrial fibrillation status post cardioversion currently on long-term anticoagulation with Xarelto 20 mg 1 tablet twice a day. He takes pravastatin for his elevated cholesterol. Currently on losartan 50 mg daily for treatment of hypertension. He is scheduled with Dr.Ankit Her and Dr Wong for cardiac ablation for chronic AFib scheduled for 05/31/2024. He still has intermittent palpitations with accompanying shortness of breath and fatigue but is better since he started taking amiodarone. He states that he had a Cologuard testing done in 2021 done at the clinic in [facility]. Patient states results were negative [facility] Medical History (Updated 05/09/24 @ 10:23 by Destinee Crespo MD) Chronic atrial fibrillation History of echocardiogram History of cardioversion History of chronic atrial fibrillation Obesity (BMI 30-39.9) Screening for malignant neoplasm of colon performed Impaired fasting glucose Hyperlipidemia Essential hypertension Surgical History (Updated 05/09/24 @ 10:01 by Destinee Crespo MD) History of cataract surgery History of eye surgery Family History Mother Alzheimer dementia Essential hypertension Hyperlipidemia Father CVA (cerebral vascular accident), Onset Age: 67 Essential hypertension Hyperlipidemia Social History Housing: House Patient Tobacco Use Status: Former Tobacco user e-Cigarette/Vaping Use: Never Used Second Hand Smoke Exposure: No service: No Current occupational status: employed Current occupation: [employer] Current occupational exposures/hazards: No Cognitive needs: No Hearing needs: No Vision needs: Yes Questionnaire PHQ-9 Over the last 2 weeks, how often have you been bothered by any of the following problems? 1. Little interest or pleasure in doing things: not at all 2. Feeling down, depressed, or hopeless: not at all 3. Trouble falling or staying asleep, or sleeping too much: not at all 4. Feeling tired or having little energy: not at all 5. Poor appetite or overeating: not at all 6. Feeling bad about yourself - or that you are a failure or have let yourself or your family down: not at all 7. Trouble concentrating on things, such as reading the newspaper or watching television: not at all 8. Moving or speaking so slowly that other people could have noticed. Or the opposite - being so fidgety or restless that you have been moving around a lot more than usual: not at all 9. Thoughts that you would be better off or of hurting yourself in some way: not at all Total score: 0 Depression Screening Interpretation: Negative Depression Screening Done: Yes 11277 - PHQ-9 Billing: Yes Source: Developed by Drs. Ze Valerio, Celine Sandhu, Bryson Dupree and colleagues, with an educational chantell from [employer]. Thrive Questionnaire Date Thrive assessed: 05/09/24 I am a: Patient What is your living situation today?: I have a steady place to live Within the past 12 months, did the food you bought not last and you didn't have the money to get more?: Never true Within the past 12 months, did you worry whether your food would run out before you got money to buy more?: Never true Do you have trouble paying for medicines?: No Do you have trouble getting transportation to medical appointments?: No Do you have trouble paying your heating and electricity bill?: No Do you have trouble taking care of your child, family member or friend?: No Do you have trouble with day-to-day activities such as bathing, preparing meals, shopping, managing finances, etc.?: No Are you currently unemployed and looking for a job?: No Are you interested in more education?: No THRIVE Score: 0 AUDIT C Alcohol Use Questionnaire (AUDIT-C) 1. How often do you have a drink containing alcohol?: Never Total Score: 0 PATRICIA-7 AMB Questionnaire PATRICIA-7 Date PATRICIA - 7 assessed: 05/09/24 Feeling nervous, anxious, or on edge: 0 = Not at all Not being able to stop or control worryin = Not at all Worrying too much about different things: 0 = Not at all Trouble relaxin = Not at all Being so restless that it is hard to sit still: 0 = Not at all Becoming easily annoyed or irritable: 0 = Not at all Feeling afraid as if something awful might happen: 0 = Not at all Total PATRICIA-7 score (0-4 normal; 5-9 mild; 10-14 moderate; 15-21 severe): 0 Source: Developed by Drs. Ze Valerio, Celine Sandhu, Bryson Dupree and colleagues, with an educational chantell from [employer]. PATRICIA-7 Assessment Billing PATRICIA-7 Assessment Tool: PATRICIA-7 Assessment 97692 Review of Systems Const Reports no additional complaints Eyes Details: sees Addidaryadallas , referred to Dr Mccann at [facility] , to be scheduled for cataract surgery in 12/2023 ENT Reports no additional complaints Card Denies chest pain at rest, Denies chest pain with activity, Denies syncope, Denies rapid heart rate, Denies irregular heart rhythm and Denies lightheadedness Resp Reports no additional complaints GI Reports no additional complaints Reports no additional complaints Musc Reports no additional complaints Skin/Breast Denies lesions, Denies rash and Denies unusual bruising Neuro Reports no additional complaints and Denies syncope Psych Reports no additional complaints Endo Reports no additional complaints Abelardo/Lymph Reports no additional complaints Aller/Immun Reports no additional complaints Physical exam (Primary Care) Vital Signs: Last Vital Signs Pulse 150 H 05/09/24 09:28 BP 122/80 05/09/24 09:28 Pulse Ox 97 05/09/24 09:28 Oxygen Delivery Method Room Air 05/09/24 09:28 BMI result Body Mass Index 35.9 Tobacco/Smoking Status: Tobacco use Status Tobacco use date assessed 05/09/24 05/09/24 09:37 Patient Tobacco Use Status Former Tobacco user 05/09/24 09:28 e-Cigarette/Vaping Use Never Used 05/09/24 09:28 PHQ-9: PHQ-9 Score PHQ-9: Total score 0 05/09/24 09:47 Depression Screening Interpretation: Negative Thrive Assessment: Date of Thrive Assessment Date Thrive assessed 05/09/24 05/09/24 09:47 Const General: no acute distress and alert Nutritional Appearance: obese Orientation/consciousness: patient oriented x3 HENMT Head: Yes normocephalic and Yes atraumatic Ears: external ears normal, TM's normal bilaterally and EAC's normal General nose exam: Normal external nose present and No nasal discharge present Face and sinus: Yes face symmetric Mouth: Normal oral and palatal mucosa present, lip normal, tongue normal, oroph arynx normal and moist mucous membranes Eyes General: appearance normal, both eyes and all related structures Eyelids: Yes eyelids normal Conjunctivae: conjunctivae normal Sclerae: sclerae normal Pupils: Equal, round and reactive pupils present EOM: EOMs intact bilaterally Neck Neck: Yes full ROM, Yes no lymphadenopathy and Yes supple Thyroid: Thyroid normal (non-palpable) Chest Chest palpation & inspection: normal inspection of the chest Breast/axilla palpation: normal palpation of the breasts Resp Effort & Inspection: normal respiratory effort and able to speak in complete sentences Auscultation: clear to auscultation bilaterally Cardio Other: Irregularly irregular rhythm GI Palpation (GI): Soft to palpation, nontender, no guarding and no masses Auscultation: normal bowel sounds General: Yes no CVA tenderness Back/Spine/Pelvis Back: no CVA tenderness and No back tenderness Skin General skin exam: no rashes or lesions noted Neuro General: patient oriented x3, gait normal, moves all extremities, Normal light touch and pain sensation, no focal motor deficits and CN's II-XI intact bilaterally Cranial nerves: Yes Equal, round and reactive pupils present Cognition (Neuro): normal cognition Gait exam (Neuro): Normal gait present Motor exam (neuro): 5/5 motor strength present throughout Extrem General: Yes normal to inspection, Yes full ROM, Yes no joint enlargement, Yes no pedal edema and Yes normal gait Psych Appearance: grossly normal and well kempt Mental Status: mental status grossly normal Speech and movement: Normal speech and movement present Affect: normal affect Attitude: cooperative Thought process: Normal thought process present Thought content: Normal thought content present Immunizations pneumoc 20-angel conj-dip cr(PF) 0.5 mL IM syringe Performing Provider: Destinee Crespo MD Performing Location: [facility] Administered by: Irina Park CMA on 05/09/24 10:25 Dose Route Admin Location Dispensed Lot Number Expiration Date NDC Retaining Room Cutter 0.5 mL IM Left Deltoid 0.5 mL [id number] 04/29/25 1132-5226-81 WYETH/PFIZER VIS Given Date VIS Provided VIS Publication Date 05/09/24 Single Vaccine 21 Eligibility Eligibility Date Funding Source Not [facility] Eligible 05/09/24 Private Assessment and Plan Assessment & Plan (1) Annual visit for general adult medical examination with abnormal findings: Code(s): Z00.01 - Encounter for general adult medical examination with abnormal findings Plan: Will check appropriate labs. Recommended dental visit every 6 months and continue with regular eye exams, at least every 2 years goes to [facility] . Take adequate calcium in diet and vitamin-D 3 at 2000 IU per cap once a day, in addition to weight-bearing exercises to help maintain good muscle tone and weight control. Instructed to do testicular exam check for any mass. Has had COVID vaccines but does not want to get the booster, gets yearly flu shots, up-to-date with his shingles vaccination, had Pneumovax 23, given Prevnar 20 today. Up-to-date with his Tdap. Did Cologuard testing in 2021, normal per patient, repeat due again in 2024 (2) Chronic atrial fibrillation: Code(s): I48.20 - Chronic atrial fibrillation, unspecified Plan: Currently on Xarelto, and amiodarone. Scheduled for cardiac ablation on 05/31/[address] Her (3) Hyperlipidemia: Code(s): E78.5 - Hyperlipidemia, unspecified Qualifiers: Hyperlipidemia type: pure hypercholesterolemia Qualified Code(s): E78.00 - Pure hypercholesterolemia, unspecified Plan: Last fasting lipid panel done 11/19/2023 showed results within normal limits repeat fasting lipid levels ordered. Continue with pravastatin 40 mg at bedtime (4) Impaired fasting glucose: Code(s): R73.01 - Impaired fasting glucose Plan: Your previous fasting blood sugars were elevated above 100 mg/dL. Impaired glucose metabolism increases the risk for developing diabetes mellitus type 2, as well as heart attack and stroke later on. Lifestyle changes that promotes weight loss, healthy eating habits, and regular exercise are important, and can prevent the progression to diabetes (5) Essential hypertension: Code(s): I10 - Essential (primary) hypertension Plan: Blood pressure at goal of less than 130/80. Continue with losartan and diltiazem. Reinforced importance of following a low sodium diet, getting regular exercise, and lowering stress levels. (6) Obesity (BMI 30-39.9): Code(s): E66.9 - Obesity, unspecified Plan: Eat Mediterranean diet, limit foods high in fat, sugar, and calories, eat slowly, pay attention to portion sizes, plan your meals ahead of time, start regular physical activity 150 minutes of moderate intensity exercise or 90 minutes/week of vigorous exercise and increase water intake. (7) Advanced directives, counseling/discussion: Code(s): Z71.89 - Other specified counseling Plan: Initiated the conversation about Advanced Directives. Advanced Directives help patients prepare for current and future decisions about their medical treatment and place of care. Discussed with patient that it is a process where a patients current condition and prognosis are reviewed, their wishes for information regarding their illness are elicited, and likely medical dilemmas are presented and options discussed. Healthcare proxy form and MOLST form completed today. These forms can be amended as needed, reviewed yearly and make changes as needed Orders: Orders Pneumococcal 20 Immunization Today Z23 - Encounter for immunization Coding Level of Care Code Est Pt Prev Care >65y(48440) Diagnoses Annual visit for general adult medical examination with abnormal findings Z00.01 Chronic atrial fibrillation I48.20 Pure hypercholesterolemia E78.00 Hyperlipidemia type: pure hypercholesterolemia Impaired fasting glucose R73.01 Essential hypertension I10 Obesity (BMI 30-39.9) E66.9 Advanced directives, counseling/discussion Z71.89 Additional Codes PATRICIA-7 Assessment Billing - PATRICIA-7 Assessment Tool: PATRICIA-7 Assessment 73209 ([id number])
[2024-05-09 09:28] VITALS: BP 122/80; PULSE 100; O2SAT 97; BMI 35.9
== END 2024-05-09 10:35 | disposition home or self-care (01) ==
PROVIDERS: PCP Internal Medicine; Visit Provider Internal Medicine
DX: Z00.00 Encounter for general adult medical examination without abnormal findings (principal); E66.9 Obesity, unspecified; I48.20 Chronic atrial fibrillation, unspecified; Z23 Encounter for immunization; Z68.35 Body mass index [BMI] 35.0-35.9, adult; E78.00 Pure hypercholesterolemia, unspecified; R73.01 Impaired fasting glucose; I10 Essential (primary) hypertension
CPT/HCPCS: 90471; 90677; 99397

== ENCOUNTER 2024-07-12 06:12 | Outpatient (REF) | payer OTHER, SELFPAY ==
[2024-07-12 10:46] LABS: Alanine Aminotransferase 59 U/L (0-40); Anion Gap 13 (12-20); Aspartate Amino Transferase 39 U/L (5-37); Blood Urea Nitrogen 15 mg/dL (9-16); Calcium 9.8 mg/dL (8.4-10.2); Carbon Dioxide 27 mmol/L (22-29); Chloride 104 mmol/L (96-108); Cholesterol 181 mg/dL (<200); Estimated Glomerular Filt Rate > 60; Glucose Fasting 98 mg/dL (60-99); HDL Cholesterol 70 mg/dL (>40); LDL Cholesterol Calculated 96 mg/dL (<100); Potassium 4.8 mmol/L (3.3-5.1); Sodium 139 mmol/L (135-145); Triglycerides 79 mg/dL (<150)
[2024-07-12 10:50] LABS: PSA,Total (Free>4and<10) 0.98 ng/mL (0.00-4.00)
[2024-07-12 11:02] LABS: Vitamin D 25-OH Total 37.4 ng/mL (>30)
== END 2024-07-12 06:13 | disposition home or self-care (01) ==
LOC: HO.HMGCLDS 06:12
PROVIDERS: PCP Internal Medicine; Visit Provider Internal Medicine
DX: E66.9 Obesity, unspecified (principal); R73.01 Impaired fasting glucose; E78.5 Hyperlipidemia, unspecified; I10 Essential (primary) hypertension; Z12.5 Encounter for screening for malignant neoplasm of prostate; Z86.79 Personal history of other diseases of the circulatory system
CPT/HCPCS: 36415; 80048; 80061; 82306; 84153; 84450; 84460

== ENCOUNTER 2024-08-24 08:32 | Outpatient (AMB) | payer OTHER, SELFPAY ==
--- NOTE | 2024-08-24 08:30 | MHC.PC.OV ---
Intake Visit Reasons: Taste is gone Iphone [phone] Intake Note: Pt is having a telehealth visit today to c/o taste buds gone, pt thinks is medication he's taking: Pt request a ENT referral Allergies Sulfa (Sulfonamide Antibiotics) Allergy (Intermediate, Verified 08/24/24 09:05) Hives Medication List - Last Reconciled 08/24/24 by Destinee Crespo MD cholecalciferol (vitamin D3) 25 mcg PO DAILY losartan 50 mg PO DAILY pravastatin 40 mg PO DAILY rivaroxaban (Xarelto) 20 mg PO DAILY Tobacco use date assessed: 08/24/24 Fall risk assessment: No Falls in past year Last assessed Fall Risk: 08/24/24 Dental Screening Dental Screen Date: 08/24/24 Did you have a dental visit in the last 12 months?: No Did you have a dental problem in the last 6 months where you did not have access to dental care?: No Was dental information given to patient?: Patient has dentist HPI Taste is gone Iphone [phone] HPI Details 8-year-old male with history of hyperlipidemia, hypertension, obesity, chronic atrial fibrillation on rivaroxaban, here today complaining of loss of taste which started around February2024 , after severe episode of upper respiratory infection . Patient initially states that he could not taste anything and then it started coming back were everything started taking sitting salty. Patient states that he is able to discern suite from salty, but still not tasting things properly. Would like a referral to ENT for further evaluation [facility] Medical History (Updated 08/24/24 @ 09:14 by Destinee Crespo MD) Hypogeusia Chronic atrial fibrillation History of echocardiogram History of cardioversion History of chronic atrial fibrillation Obesity (BMI 30-39.9) Screening for malignant neoplasm of colon performed Impaired fasting glucose Hyperlipidemia Essential hypertension Surgical History History of cataract surgery History of eye surgery Family History Mother Alzheimer dementia Essential hypertension Hyperlipidemia Father CVA (cerebral vascular accident), Onset Age: 67 Essential hypertension Hyperlipidemia Social History Housing: House Patient Tobacco Use Status: Former Tobacco user e-Cigarette/Vaping Use: Never Used Second Hand Smoke Exposure: No service: No Current occupational status: employed 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 Ze Valerio, Celine Sandhu, Bryson Dupree and colleagues, with an educational chantell from [employer]. Review of Systems Const Reports no additional complaints ENT Reports no additional complaints Card Denies chest pain at rest, Denies chest pain with activity, Denies syncope, Denies rapid heart rate, Denies irregular heart rhythm and Denies lightheadedness Resp Reports no additional complaints GI Reports no additional complaints Reports no additional complaints Musc Reports no additional complaints Neuro Reports no additional complaints and Denies syncope Psych Reports no additional complaints Endo Reports no additional complaints Abelardo/Lymph Reports no additional complaints Aller/Immun Reports no additional complaints Physical exam (Primary Care) Tobacco/Smoking Status: Tobacco use Status Tobacco use date assessed 08/24/24 08/24/24 08:32 Patient Tobacco Use Status Former Tobacco user 08/24/24 08:32 e-Cigarette/Vaping Use Never Used 08/24/24 08:32 Thrive Assessment: Date of Thrive Assessment Date Thrive assessed 05/09/24 08/24/24 08:32 Telehealth Telehealth Telehealth Platform: [facility] Location of provider rendering services: practice address Location of patient: address on file Patient Identification confirmed using: Name, : Yes Telehealth method: video Patient verbally consented to treatment: Yes Patient verbally consented to billing insurance company: Yes Patient informed of any privacy concerns related to visit: Yes Minutes spent on Phone/Video with Pt.: 15 Coding Level of Care Code Tele Est Pt Level 3 (88046) Diagnoses Hypogeusia R43.8 Assessment & Plan Assessment & Plan (1) Hypogeusia: Code(s): R43.8 - Other disturbances of smell and taste Category: Medical Plan: Will check vitamin B12 and zinc levels. Referral to ENT for further evaluation ordered Orders: Orders Zinc 08/24/24 R43.8 - Other disturbances of smell and taste Vitamin B12 and Folate 08/24/24 R43.8 - Other disturbances of smell and taste Lipid Panel 09/30/24 E78.00 - Pure hypercholesterolemia, unspecified, I10 - Essential (primary) hypertension, R73.01 - Impaired fasting glucose, R74.01 - Elevation of levels of liver transaminase levels Vitamin D 25-OH Total 09/30/24 E78.00 - Pure hypercholesterolemia, unspecified, I10 - Essential (primary) hypertension, R73.01 - Impaired fasting glucose, R74.01 - Elevation of levels of liver transaminase levels Glucose Fasting 09/30/24 E78.00 - Pure hypercholesterolemia, unspecified, I10 - Essential (primary) hypertension, R73.01 - Impaired fasting glucose, R74.01 - Elevation of levels of liver transaminase levels Hemoglobin A1c 09/30/24 E78.00 - Pure hypercholesterolemia, unspecified, I10 - Essential (primary) hypertension, R73.01 - Impaired fasting glucose, R74.01 - Elevation of levels of liver transaminase levels Liver Panel 09/30/24 E78.00 - Pure hypercholesterolemia, unspecified, I10 - Essential (primary) hypertension, R73.01 - Impaired fasting glucose, R74.01 - Elevation of levels of liver transaminase levels Referrals Ear/Nose/Throat Referral R43.8 - Other disturbances of smell and taste
== END 2024-08-24 11:20 | disposition home or self-care (01) ==
LOC: HO.HMCC 08:32
PROVIDERS: PCP Internal Medicine; Visit Provider Internal Medicine
DX: R43.8 Other disturbances of smell and taste (principal)

== ENCOUNTER → 2024-08-24 08:32 | Outpatient (BNVA) | payer OTHER, SELFPAY | PROVIDERS: PCP Internal Medicine; Visit Provider Internal Medicine ==

== ENCOUNTER 2024-08-28 06:11 | Outpatient (REF) | payer OTHER, SELFPAY ==
[2024-08-28 11:30] LABS: Folate 7.5 ng/mL (> or = 4.0); Vitamin B12 254 pg/mL (200-900)
[2024-09-01 00:28] LABS: Zinc 68 mcg/dL (60-130)
== END 2024-08-28 06:12 | disposition home or self-care (01) ==
LOC: HO.HMGCLDS 06:11
PROVIDERS: PCP Internal Medicine; Visit Provider Internal Medicine
DX: R43.8 Other disturbances of smell and taste (principal)
CPT/HCPCS: 36415; 82330; 82607; 82746; 84630

== ENCOUNTER 2024-10-01 06:09 | Outpatient (REF) | payer OTHER, SELFPAY ==
[2024-10-01 10:56] LABS: Alanine Aminotransferase 22 U/L (0-40); Albumin Level 4.1 g/dL (3.5-5.0); Alkaline Phosphatase 73 U/L (39-117); Aspartate Amino Transferase 26 U/L (5-37); Bilirubin Direct 0.2 mg/dL (0.0-0.5); Bilirubin Total 0.5 mg/dL (0.0-1.0); Cholesterol 185 mg/dL (<200); Estimated Average Glucose 105 mg/dL; Glucose Fasting 105 mg/dL (60-99); HDL Cholesterol 75 mg/dL (>40); Hemoglobin A1C 133.2337 umol/L; Hemoglobin A1c % 5.3 % (<6.0); LDL Cholesterol Calculated 93 mg/dL (<100); Total Hemoglobin (HGBA1C) 3908.4609 umol/L; Total Protein 7.3 g/dL (6.5-8.0); Triglycerides 85 mg/dL (<150)
[2024-10-01 11:14] LABS: Vitamin D 25-OH Total 33.8 ng/mL (>30)
[2024-10-02 12:39] LABS: Calcium, Ionized 5.1 mg/dL (4.7-5.5)
== END 2024-10-01 06:10 | disposition home or self-care (01) ==
LOC: HO.HMGCLDS 06:09
PROVIDERS: PCP Internal Medicine; Visit Provider Internal Medicine
DX: E78.00 Pure hypercholesterolemia, unspecified (principal); E83.52 Hypercalcemia; R73.01 Impaired fasting glucose; I10 Essential (primary) hypertension; R74.01 Elevation of levels of liver transaminase levels
CPT/HCPCS: 36415; 80061; 80076; 82306; 82330; 82947; 83036

== ENCOUNTER 2024-10-04 11:29 | Outpatient (AMB) | payer OTHER, SELFPAY ==
[2024-10-04 11:34] VITALS: BP 130/80; PULSE 98; O2SAT 96; BMI 33.1
--- NOTE | 2024-10-04 11:34 | MHC.PC.OV ---
Vital Signs 10/04/24 11:34 Height 5 ft 8 in Weight 218 lb BMI 33.1 BP 130/80 Blood Pressure Location Rt brachial Position Sitting Pulse 98 Pulse Source Pulse Oximeter Pulse Oximetry (%) 96 Oxygen Delivery Method Room Air Intake Visit Reasons: 6M F/U lipids, htn Intake Note: Pt is here today for his f/u lipids and HTN Allergies Sulfa (Sulfonamide Antibiotics) Allergy (Intermediate, Verified 10/04/24 12:31) Hives Medication List - Last Reconciled 10/04/24 by Destinee Crespo MD cholecalciferol (vitamin D3) 25 mcg PO DAILY losartan 50 mg PO DAILY pravastatin 40 mg PO DAILY rivaroxaban (Xarelto) 20 mg PO DAILY Tobacco use date assessed: 10/04/24 Fall risk assessment: No Falls in past year Last assessed Fall Risk: 10/04/24 Dental Screening Dental Screen Date: 10/04/24 Did you have a dental visit in the last 12 months?: No Did you have a dental problem in the last 6 months where you did not have access to dental care?: No Was dental information given to patient?: Patient has dentist HPI 6M F/U lipids, htn HPI Details The patient is a 68-year-old male presenting for follow-up on cholesterol and impaired fasting glucose management. His recent HbA1c is at 5.3%, with an average blood glucose of 105 mg/dL over the past three months. His latest fasting rapid panel is within normal limits , with triglycerides at 85 mg/dL, total cholesterol at 185 mg/dL, low-density lipoprotein (LDL) cholesterol at 93 mg/dL, and high-density lipoprotein (HDL) cholesterol at 75 mg/dL. He is on Pravastatin and Losartan, with no reported muscle pain. Attempts at weight management have been pursued, primarily through dietary modifications, including reduced alcohol intake to weekends only. Breakfast typically consists of cereal and a banana, usually with light milk; lunch includes yogurt and snacks. Has reduced meal portions, such as eating one hamburger instead of two. Exercises by engaging in yard work, plays golf regularly, and noted functional improvement post-weight loss. The patient takes 1,000 IU of vitamin D daily, considering increasing to 2,000 IU during the winter months. He has a history of atrial fibrillation, for which he underwent Cardiac ablation. Post-ablation, he reports improved condition but continues with long-term anticoagulation therapy with Xarelto. He denies any unusual bleeding but does note that he bruises easily. He underwent cataract surgery last summer and has regular ophthalmologic evaluations. [facility] Medical History Current use of business objects architect anticoagulation History of atrial fibrillation Hypogeusia Chronic atrial fibrillation History of echocardiogram History of cardioversion History of chronic atrial fibrillation Obesity (BMI 30-39.9) Screening for malignant neoplasm of colon performed Impaired fasting glucose Hyperlipidemia Essential hypertension Surgical History History of cardiac ablation for atrial fibrillation History of cataract surgery History of eye surgery Family History Mother Alzheimer dementia Essential hypertension Hyperlipidemia Father CVA (cerebral vascular accident), Onset Age: 67 Essential hypertension Hyperlipidemia Social History Housing: House Patient Tobacco Use Status: Former Tobacco user e-Cigarette/Vaping Use: Never Used Second Hand Smoke Exposure: No service: No Current occupational status: employed 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 1. Little interest or pleasure in doing things: not at all 2. Feeling down, depressed, or hopeless: not at all 3. Trouble falling or staying asleep, or sleeping too much: not at all 4. Feeling tired or having little energy: not at all 5. Poor appetite or overeating: not at all 6. Feeling bad about yourself - or that you are a failure or have let yourself or your family down: not at all 7. Trouble concentrating on things, such as reading the newspaper or watching television: not at all 8. Moving or speaking so slowly that other people could have noticed. Or the opposite - being so fidgety or restless that you have been moving around a lot more than usual: not at all 9. Thoughts that you would be better off or of hurting yourself in some way: not at all Total score: 0 Depression Screening Interpretation: Negative Depression Screening Done: Yes 83701 - PHQ-9 Billing: Yes Source: Developed by Drs. Ze Valerio, Celine Sandhu, Bryson Dupree and colleagues, with an educational chantell from [employer]. Thrive Questionnaire Date Thrive assessed: 10/04/24 I am a: Patient What is your living situation today?: I have a steady place to live Within the past 12 months, did the food you bought not last and you didn't have the money to get more?: Never true Within the past 12 months, did you worry whether your food would run out before you got money to buy more?: Never true Do you have trouble paying for medicines?: No Do you have trouble getting transportation to medical appointments?: No Do you have trouble paying your heating and electricity bill?: No Do you have trouble taking care of your child, family member or friend?: No Do you have trouble with day-to-day activities such as bathing, preparing meals, shopping, managing finances, etc.?: No Are you currently unemployed and looking for a job?: No Are you interested in more education?: No Please select the resources that you would like help with: None Currently or been in a relationship where the following occur: No concerns reported THRIVE Score: 0 AUDIT C Alcohol Use Questionnaire (AUDIT-C) 1. How often do you have a drink containing alcohol?: 2-4 times a month 2. How many drinks containing alcohol do you have on a typical day when you are drinking?: 1 or 2 3. How often do you have six or more drinks on one occasion?: Never Total Score: 2 PATRICIA-7 AMB Questionnaire PATRICIA-7 Date PATRICIA - 7 assessed: 10/04/24 Feeling nervous, anxious, or on edge: 0 = Not at all Not being able to stop or control worryin = Not at all Worrying too much about different things: 0 = Not at all Trouble relaxin = Not at all Being so restless that it is hard to sit still: 0 = Not at all Becoming easily annoyed or irritable: 0 = Not at all Feeling afraid as if something awful might happen: 0 = Not at all Total PATRICIA-7 score (0-4 normal; 5-9 mild; 10-14 moderate; 15-21 severe): 0 Source: Developed by Drs. Ze Valerio, Celine Sandhu, Bryson Dupree and colleagues, with an educational chantell from [employer]. PATRICIA-7 Assessment Billing PATRICIA-7 Assessment Tool: PATRICIA-7 Assessment 23576 Review of Systems Const Reports no additional complaints and Reports weight loss Eyes Details: Dr Mccann did cataract sx , sees [facility] eye care ENT Reports no additional complaints Card Denies chest pain at rest, Denies chest pain with activity, Denies syncope, Denies rapid heart rate, Denies irregular heart rhythm and Denies lightheadedness Resp Reports no additional complaints GI Reports no additional complaints Reports no additional complaints Musc Reports no additional complaints Skin/Breast Denies lesions, Denies rash and Denies unusual bruising Neuro Reports no additional complaints and Denies syncope Psych Reports no additional complaints Endo Reports no additional complaints Abelardo/Lymph Reports no additional complaints Aller/Immun Reports no additional complaints Physical exam (Primary Care) Vital Signs: Last Vital Signs Pulse 98 10/04/24 11:34 BP 130/80 10/04/24 11:34 Pulse Ox 96 10/04/24 11:34 Oxygen Delivery Method Room Air 10/04/24 11:34 BMI result Body Mass Index 33.1 Tobacco/Smoking Status: Tobacco use Status Tobacco use date assessed 10/04/24 10/04/24 11:40 Patient Tobacco Use Status Former Tobacco user 10/04/24 11:35 e-Cigarette/Vaping Use Never Used 10/04/24 11:35 PHQ-9: PHQ-9 Score PHQ-9: Total score 0 10/04/24 12:30 Depression Screening Interpretation: Negative Thrive Assessment: Date of Thrive Assessment Date Thrive assessed 10/04/24 10/04/24 11:40 Currently or been in a relationship where the following occur: No concerns reported Const General: no acute distress and alert Nutritional Appearance: obese Orientation/consciousness: patient oriented x3 HENMT Head: Yes normocephalic Ears: external ears normal General nose exam: Normal external nose present Face and sinus: Yes face symmetric Mouth: Normal oral and palatal mucosa present and moist mucous membranes Eyes General: appearance normal, both eyes and all related structures Neck Neck: Yes full ROM, Yes no lymphadenopathy and Yes supple Thyroid: Thyroid normal (non-palpable) Resp Effort & Inspection: normal respiratory effort and able to speak in complete sentences Auscultation: clear to auscultation bilaterally Cardio Rate: regular rate Rhythm: regular rhythm Heart sounds: S1 normal heart sound present and S2 normal heart sound present Bruits: no abdominal aortic bruits and no carotid bruits GI Palpation (GI): No Abdominal aortic bruit present, Soft to palpation, nontender, no guarding and no masses Auscultation: normal bowel sounds General: Yes no CVA tenderness Back/Spine/Pelvis Back: no CVA tenderness and No back tenderness Skin General skin exam: no rashes or lesions noted Neuro General: patient oriented x3, gait normal, moves all extremities, Normal light touch and pain sensation, no focal motor deficits and CN's II-XI intact bilaterally Cognition (Neuro): normal cognition Gait exam (Neuro): Normal gait present Motor exam (neuro): 5/5 motor strength present throughout Extrem General: Yes normal to inspection, Yes full ROM, Yes no joint enlargement, Yes no pedal edema and Yes normal gait Psych Appearance: grossly normal and well kempt Mental Status: mental status grossly normal Speech and movement: Normal speech and movement present Affect: normal affect Attitude: cooperative Thought process: Normal thought process present Thought content: Normal thought content present Results Reviewed Results Reviewed: Laboratory Tests 10/01/24 06:22 Estimat Average Glucose 105 Hemoglobin A1c % 5.3 Name: Lisandro Deal Age/Sex: 68/M : 1955 Unit#: [id number] Attend Dr: Destinee Crespo MD Re10/01/24 Status: DEP REF Location: [facility] Disch: SPEC : [id number] JOSE: 10/01/24 STATUS: COMP REQ : [id number] RECD: 10/01/[address]: Destinee Crespo MD COMP: 10/01/24 ENTERED: 10/01/24 [facility]: ORDERED: Liver Panel, Glu Fasting, Lipid Panel, Vitamin D 25-OH Test Result Flag Reference FBS 105 H 60-99 mg/dL A fasting glucose from 100-125 mg/dl is considered impaired (pre-diabetes). Total Bili 0.5 0.0-1.0 mg/dL Direct Bili 0.2 0.0-0.5 mg/dL AST (GOT) 26 5-37 U/L ALT (GPT) 22 0-40 U/L Protein, Total 7.3 6.5-8.0 g/dL Alb 4.1 3.5-5.0 g/dL Triglyceride 85 <150 mg/dL Desirable Triglyceride: less than 150 mg/dL Borderline High Triglyceride 150-199 mg/dL High Triglyceride: 200-499 mg/dL Very High Triglyceride: greater than or equal to 5OO mg/dL Cholesterol 185 <200 mg/dL Desirable Cholesterol: less than 200 mg/dL Borderline High Cholesterol: 200-239 mg/dL High Cholesterol: greater than 239 mg/dL LDL Calculated 93 <100 mg/dL Desirable LDL: less than 100 mg/dL Near Optimal/Above Optimal LDL: 110-129 mg/dL Borderline High LDL: 130-159 mg/dL High LDL: 160-189 mg/dL Very High LDL: greater than or equal to 190 mg/dL HDL 75 >40 mg/dL Desirable HDL: greater than 40 mg/dL Note: This HDL assay may give artificially low results in patients with liver disease. Alk Phos 73 39-117 U/L Vit D 25-OH Tot 33.8 >30 ng/mL Health Based Reference Values* < 20 ng/mL Deficient 20-30 ng/mL Insufficient > 30 ng/mL Sufficient Coding Level of Care Code Est Pt Level 4 (15855) Complex EM visit Add On G2211 Diagnoses Pure hypercholesterolemia E78.00 Hyperlipidemia type: pure hypercholesterolemia Chronic atrial fibrillation I48.20 Essential hypertension I10 Impaired fasting glucose R73.01 Obesity (BMI 30-39.9) E66.9 History of atrial fibrillation Z86.79 Current use of business objects architect anticoagulation Z79.01 Additional Codes PHQ-9 - 33471 - PHQ-9 Billing: Yes ([id number]) PATRICIA-7 Assessment Billing - PATRICIA-7 Assessment Tool: PATRICIA-7 Assessment 29444 ([id number]) Assessment & Plan Assessment & Plan (1) Hyperlipidemia: Code(s): E78.5 - Hyperlipidemia, unspecified Category: Medical Qualifiers: Hyperlipidemia type: pure hypercholesterolemia Qualified Code(s): E78.00 - Pure hypercholesterolemia, unspecified (2) Chronic atrial fibrillation: Code(s): I48.20 - Chronic atrial fibrillation, unspecified Category: Medical (3) Essential hypertension: Code(s): I10 - Essential (primary) hypertension Category: Medical (4) Impaired fasting glucose: Code(s): R73.01 - Impaired fasting glucose Category: Medical (5) Obesity (BMI 30-39.9): Code(s): E66.9 - Obesity, unspecified Category: Medical (6) History of atrial fibrillation: Code(s): Z86.79 - Personal history of other diseases of the circulatory system Category: Medical (7) Current use of usp anticoagulation: Code(s): Z79.01 - assisted (current) use of anticoagulants Category: Medical Plan - Hypercholesterolemia: Continue current regimen of Pravastatin. Advise maintaining dietary adjustments and physical activity. - hx of Atrial Fibrillations/p cardiac ablation-: Continue Rivaroxaban as prescribed. Monitor for signs of unusual bleeding or bruising. - Hypertension: Continue with Losartan. Encourage lifestyle modifications. - Immunizations: Recommend administration of COVID-19 and influenza vaccines sequentially; update tetanus vaccine when indicated. - Weight Management: Continue dietary modifications; advised on possible strength training for added muscle tone. - Screening: Schedule next Cologuard screening for colorectal cancer next year. - Ophthalmologic: Routine follow-up every 2 years, , Goes to [facility] in [place] - Dental: Schedule regular exams annually. During our discussion, I emphasized the importance of maintaining his current successful management of hypercholesterolemia, highlighting his improved lab results. We reviewed the plan to proceed with vaccinations, prioritizing the COVID-19 vaccine, followed by the influenza vaccine. I explained the importance of avoiding combined administration due to potential side effects . We discussed his anticoagulation management post-ablation, and he reported no adverse effects but some bruising, which we will continue to monitor. I advised on lifestyle modifications, focusing on new exercise routines to aid weight management and the benefits of limited alcohol consumption on liver health. Regular dental care and procedural screenings were discussed as part of comprehensive health maintenance. Will see him for follow up visit in April 2025 after fasting labs done, which has been ordered Patient was informed and verbally consented to the use of an ambient scribe for clinic note documentation during this visit. Orders: Orders Hemoglobin A1c 04/30/25 E66.9 - Obesity, unspecified, E78.00 - Pure hypercholesterolemia, unspecified, I10 - Essential (primary) hypertension, I48.20 - Chronic atrial fibrillation, unspecified, R73.01 - Impaired fasting glucose, Z12.5 - Encounter for screening for malignant neoplasm of prostate Aspartate Amino Transferase 04/30/25 E66.9 - Obesity, unspecified, E78.00 - Pure hypercholesterolemia, unspecified, I10 - Essential (primary) hypertension, I48.20 - Chronic atrial fibrillation, unspecified, R73.01 - Impaired fasting glucose, Z12.5 - Encounter for screening for malignant neoplasm of prostate Lipid Panel 04/30/25 E66.9 - Obesity, unspecified, E78.00 - Pure hypercholesterolemia, unspecified, I10 - Essential (primary) hypertension, I48.20 - Chronic atrial fibrillation, unspecified, R73.01 - Impaired fasting glucose, Z12.5 - Encounter for screening for malignant neoplasm of prostate PSA,Total (Free>4and<10) 04/30/25 E66.9 - Obesity, unspecified, E78.00 - Pure hypercholesterolemia, unspecified, I10 - Essential (primary) hypertension, I48.20 - Chronic atrial fibrillation, unspecified, R73.01 - Impaired fasting glucose, Z12.5 - Encounter for screening for malignant neoplasm of prostate Alanine Aminotransferase 04/30/25 E66.9 - Obesity, unspecified, E78.00 - Pure hypercholesterolemia, unspecified, I10 - Essential (primary) hypertension, I48.20 - Chronic atrial fibrillation, unspecified, R73.01 - Impaired fasting glucose, Z12.5 - Encounter for screening for malignant neoplasm of prostate Basic Metabolic Panel Fasting 04/30/25 E66.9 - Obesity, unspecified, E78.00 - Pure hypercholesterolemia, unspecified, I10 - Essential (primary) hypertension, I48.20 - Chronic atrial fibrillation, unspecified, R73.01 - Impaired fasting glucose, Z12.5 - Encounter for screening for malignant neoplasm of prostate Vitamin D 25-OH Total 04/30/25 E66.9 - Obesity, unspecified, E78.00 - Pure hypercholesterolemia, unspecified, I10 - Essential (primary) hypertension, I48.20 - Chronic atrial fibrillation, unspecified, R73.01 - Impaired fasting glucose, Z12.5 - Encounter for screening for malignant neoplasm of prostate
--- OUTSIDE RECORDS SUMMARY | 2024-10-10 01:59 | XMS_ITS | Patient Health Record ---
[facility] Address [address] [place] [address] Care Team Providers Care Manager Clinical Pharmacy Name Role Phone Esau Pedro Primary Care Provider UnavailCelestina Angelo Unavailable [phone] Allergies Allergen (clinical drug ingredient) Drug/Non Drug Allergy documented on EMR Reaction Allergy Type Onset Date Status sulfamethoxazole / trimethoprim Bactrim Unknown Drug Allergy Active Reason For Referral No Information Medications Medication SIG (Take, Route, Frequency, Duration) Notes Start Date End Date Status LamISIL 250 MG 1 tablet Orally Once a day for 7 days stop for 3 weeks repeat cycle 90 dyas for 90 days 04/16/2020 Not-Taking Aspirin Active Vitamin D Active dilTIAZem HCl ER Beads 360 MG 1 capsule Orally Once a day for 30 day(s) Active Losartan Potassium 25 MG 1 tablet Orally Once a day for 30 day(s) Active Pravastatin Sodium 20 MG 1 tablet Orally Once a day for 30 day(s) Active Immunizations Vaccine Route Administration Date Status Comme nts COVID-19 Pfizer BioNTech Vaccine Unknown 02/06/2021 Administered Second Dose: 03/09/2021 Social History Tobacco Use: Social History Observation Description Date Details (start date - stop date) Former Smoker NA - NA Tobacco Use/Smoking Question Answer Notes Are you a: former smoker When did you stop smoking? 2001 Additional Findings: Tobacco Non-User Cu rrent non-smoker,Ex-heavy cigarette smoker (20-30/day) Alcohol Screen Question Answer Notes Did you have a drink contain ing alcohol in the past year? Yes How often did you have a dri nk containing alcohol in the past year? 4 or more times a week (4 points) How many drinks did you have on a typical day when you were drinking in the past year? 1 or 2 drinks (0 point) How often did you have 6 or more drinks on one occasion in the past year? Never (0 point) Points 4 Interpretation Positive Tobacco use other than smoking: Question Answer Notes Are you an other tobacco user? No Problems No Known Problems Plan Of Treatment Pending Test Test Name Order Date *Liver Function Test (LFT) 03/19/2020 *Liver Function Test (LFT) 10/02/2020 [id number] NAIL, 6 OR MORE 03/19/2020 Insurance Providers Payer Name Payer Address Payer Phone Subscriber Number Group Number Insured Name Patient Relationship to Insured Coverage Start Date Coverage End Date [employer] [address] [place] [address] [phone] [id number] Lisandro Deal Self - patient is the insured Medical (General) History Medical History History ICD Code Cholesterol Cancer High blood pressure Measles Mumps Chicken pox A fib Surgical History Surgery Date(Month/Year) Hospitalization History Reason Date(Month/Year) [facility]ib 2017
== END 2024-10-04 14:37 | disposition home or self-care (01) ==
PROVIDERS: PCP Internal Medicine; Visit Provider Internal Medicine
DX: E78.00 Pure hypercholesterolemia, unspecified (principal); I48.20 Chronic atrial fibrillation, unspecified; Z68.33 Body mass index [BMI] 33.0-33.9, adult; E66.9 Obesity, unspecified; I10 Essential (primary) hypertension; R73.01 Impaired fasting glucose; Z86.79 Personal history of other diseases of the circulatory system; Z79.01 Long term (current) use of anticoagulants

== ENCOUNTER → 2024-10-04 11:29 | Outpatient (BNVA) | payer OTHER, SELFPAY | PROVIDERS: PCP Internal Medicine; Visit Provider Internal Medicine | DX: E78.00 Pure hypercholesterolemia, unspecified (principal); I48.20 Chronic atrial fibrillation, unspecified; I10 Essential (primary) hypertension; R73.01 Impaired fasting glucose; E66.9 Obesity, unspecified; Z68.33 Body mass index [BMI] 33.0-33.9, adult; Z79.01 Long term (current) use of anticoagulants; Z79.899 Other long term (current) drug therapy | CPT/HCPCS: 96127 ==

== ENCOUNTER 2025-06-05 08:34 | Outpatient (AMB) | payer OTHER, SELFPAY ==
--- OUTSIDE RECORDS SUMMARY | 2025-06-05 08:45 | XMS_ITS | Patient Health Record ---
[facility] Address [address] [place] [address] Care Team Providers Care Vp Talent Management Name Role Phone Esau Pedro Primary Care Provider Celestina Haq Unavailable [phone] Allergies Allergen (clinical drug ingredient) Drug/Non Drug Allergy documented on EMR Reaction Allergy Type Onset Date Status sulfamethoxazole / trimethoprim Bactrim Unknown Drug Allergy Active Reason For Referral No Information Medications Medication SIG (Take, Route, Frequency, Duration) Notes Start Date End Date Status LamISIL 250 MG 1 tablet Orally Once a day for 7 days stop for 3 weeks repeat cycle 90 dyas; Duration: 90 days 04/16/2020 Not-Taki ng Aspirin Active Vitamin D Active dilTIAZem HCl ER Beads 360 MG 1 capsule Orally Once a day; Duration: 30 day(s) Active Losartan Potassium 25 MG 1 tablet Orally Once a day; Duration: 30 day(s) Active Pravastatin Sodium 20 MG 1 tablet Orally Once a day; Duration: 30 day(s) Active Immunizations Vaccine Route Administration [...] (LFT) 03/19/2020 *Liver Function Test (LFT) 10/02/2020 [id number] NAIL, 6 OR MORE 03/19/2020 Insurance Providers Payer Name Payer Address Payer Phone Subscriber Number Group Number Insured Name Patient Relationship to Insured Coverage Start Date Coverage End Date [employer] [address] [place] [address] [id number] Lisandro Deal Self - patient is the insured Medical (General) History Medical History History ICD Code Cholesterol Cancer High blood pressure Measles Mumps Chicken pox A fib Surgical History Surgery Date(Month/Year) Hospitalization History Reason Date(Month/Year) [facility]ib 2017
--- OUTSIDE RECORDS SUMMARY | 2025-06-05 08:45 | XMS_ITS | Encounter Summary ---
Author Organization [facility] Address [address] [place] [address] Care Team Providers Care Farm Service Adviser Name Role Phone Esau Pedro Primary Care Provider [phone] Sophia Melo NP Primary Care Provider [phone] Seferino Glover MD Unavailable [phone] Reason for Visit * Reason Comments Med Refill Encounter Details Date Type Department Care Team (Late st Contact Info) Description 11/21/2019 Refill [facility] [address] [place] [address] Esau Pedro PA [address] [place] [address] Social History Tobacco Use Types Packs/Day Years Used Date Smoking Tobacco: Never Assessed Sex and Gender Information Value Date Recorded Sex Assigned at Not on file Legal Sex Male 7:28 AM [facility] Gender Identity Not on file Sexual Orientation Not on file documented as of this encounter Plan of Treatment Not on file documented as of this encounter Visit Diagnoses Not on filedocumented in this encounter Care Teams Farm Service Adviser Relationship Specialty Start Date End Date Esau Pedro PA [address] [place] [id number] PCP - General Family Medicine 12/14/19 10/13/21 Sophia Melo, KILEY [address] [place] [address] PCP - General Family Medicine 10/14/21 Seferino Glover MD [address] [place] [address] Consulting Physician Cardiology 12/16/21 documented as of this encounter
[2025-06-05 09:10] VITALS: BP 142/80; PULSE 92; RESP 16; TEMP 36.8; O2SAT 96; BMI 35.7
--- NOTE | 2025-06-05 09:10 | MHC.PC.OV ---
Vital Signs 06/05/25 09:10 Height 5 ft 8 in Weight 235 lb BMI 35.7 BP 142/80 H Blood Pressure Location Lt brachial Position Sitting Respiration 16 Pulse 92 Pulse Source Pulse Oximeter Temp 98.2 F Temp Source Oral Pulse Oximetry (%) 96 Oxygen Delivery Method Room Air Intake Visit Reasons: Annual PE Intake Note: Pt is here today for his PE Allergies Sulfa (Sulfonamide Antibiotics) Allergy (Intermediate, Verified 06/05/25 09:25) Hives Medication List - Last Reconciled 06/05/25 by Destinee Crespo MD cholecalciferol (vitamin D3) 25 mcg PO DAILY losartan 50 mg PO DAILY pravastatin 40 mg PO DAILY rivaroxaban (Xarelto) 20 mg PO DAILY Tobacco use date assessed: 06/05/25 Fall risk assessment: No Falls in past year Last assessed Fall Risk: 06/05/25 Dental Screening Dental Screen Date: 06/05/25 Did you have a dental visit in the last 12 months?: No Did you have a dental problem in the last 6 months where you did not have access to dental care?: No Was dental information given to patient?: Patient has dentist HPI Annual PE HPI Details - The patient is a 69-year-old male with history of hypertension history of atrial fibrillation, impaired fasting glucose, obesity and hyperlipidemia, here today for his physical exam. - The patient has a history of hypertension, currently managed with losartan. Blood pressure was noted to be elevated at 140 mmHg during the visit, despite previous readings of 120/80 mmHg at the academic affairs dean's office three months ago. He was advised to increase the losartan dose to 100 mg daily and to monitor blood pressure at home. - Hyperlipidemia: The patient is on cholesterol medication and requires regular monitoring every six months. Previous lab results in September were normal. - Cardiac arrhythmia status post-ablation: The patient underwent cardiac ablation in May of the previous year, which successfully normalized the arrhythmia. Follow-up with the academic affairs dean is scheduled annually. - Preventative care: The patient is due for a Cologuard test, which is performed every three years. 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 History of atrial fibrillation Hypogeusia Chronic atrial fibrillation History of echocardiogram History of cardioversion History of chronic atrial fibrillation Obesity (BMI 30-39.9) Screening for malignant neoplasm of colon performed Impaired fasting glucose Hyperlipidemia Essential hypertension Surgical History (Updated 06/05/25 @ 09:31 by Destinee Crespo MD) History of cardiac ablation for atrial fibrillation History of cataract surgery History of eye surgery Family History Mother Alzheimer dementia Essential hypertension Hyperlipidemia Father CVA (cerebral vascular accident), Onset Age: 67 Essential hypertension Hyperlipidemia Social History Housing: House Patient Tobacco Use Status: Former Tobacco user e-Cigarette/Vaping Use: Never Used Second Hand Smoke Exposure: No service: No Current occupational status: employed Current occupation: [employer] Current occupational exposures/hazards: No Cognitive needs: No Hearing needs: No Vision needs: Yes Questionnaire PHQ-9 Over the last 2 weeks, how often have you been bothered by any of the following problems? 1. Little interest or pleasure in doing things: not at all 2. Feeling down, depressed, or hopeless: not at all 3. Trouble falling or staying asleep, or sleeping too much: not at all 4. Feeling tired or having little energy: not at all 5. Poor appetite or overeating: not at all 6. Feeling bad about yourself - or that you are a failure or have let yourself or your family down: not at all 7. Trouble concentrating on things, such as reading the newspaper or watching television: not at all 8. Moving or speaking so slowly that other people could have noticed. Or the opposite - being so fidgety or restless that you have been moving around a lot more than usual: not at all 9. Thoughts that you would be better off or of hurting yourself in some way: not at all Total score: 0 Depression Screening Interpretation: Negative Depression Screening Done: Yes Source: Developed by Drs. Ze Valerio, Celine Sandhu, Bryson Dupree and colleagues, with an educational chantell from [employer]. Thrive Questionnaire Date Thrive assessed: 05/29/25 I am a: Patient What is your living situation today?: I have a steady place to live Within the past 12 months, did the food you bought not last and you didn't have the money to get more?: Never true Within the past 12 months, did you worry whether your food would run out before you got money to buy more?: Never true Do you have trouble paying for medicines?: Yes Do you have trouble getting transportation to medical appointments?: No Do you have trouble paying your heating and electricity bill?: No Do you have trouble taking care of your child, family member or friend?: No Do you have trouble with day-to-day activities such as bathing, preparing meals, shopping, managing finances, etc.?: No Are you currently unemployed and looking for a job?: Yes Are you interested in more education?: No Please select the resources that you would like help with: None Currently or been in a relationship where the following occur: No concerns reported THRIVE Score: 0 AUDIT C Alcohol Use Questionnaire (AUDIT-C) 1. How often do you have a drink containing alcohol?: 2-3 times a week 2. How many drinks containing alcohol do you have on a typical day when you are drinking?: 1 or 2 3. How often do you have six or more drinks on one occasion?: Never Total Score: 3 PATRICIA-7 AMB Questionnaire PATRICIA-7 Date PATRICIA - 7 assessed: 10/04/24 Feeling nervous, anxious, or on edge: 0 = Not at all Not being able to stop or control worryin = Not at all Worrying too much about different things: 0 = Not at all Trouble relaxin = Not at all Being so restless that it is hard to sit still: 0 = Not at all Becoming easily annoyed or irritable: 0 = Not at all Feeling afraid as if something awful might happen: 0 = Not at all Total PATRICIA-7 score (0-4 normal; 5-9 mild; 10-14 moderate; 15-21 severe): 0 Source: Developed by Drs. Ze Valerio, Celine Sandhu, Bryson Dupree and colleagues, with an educational chantell from [employer]. Review of Systems Const Reports no additional complaints and Reports weight loss Eyes Details: Dr Mccann did cataract sx , sees [facility] eye care ENT Reports no additional complaints Card Denies chest pain at rest, Denies chest pain with activity, Denies syncope, Denies rapid heart rate, Denies irregular heart rhythm and Denies lightheadedness Resp Reports no additional complaints GI Reports no additional complaints Reports no additional complaints Musc Reports no additional complaints Skin/Breast Denies lesions, Denies rash and Denies unusual bruising Neuro Reports no additional complaints and Denies syncope Psych Reports no additional complaints Endo Reports no additional complaints Abelardo/Lymph Reports no additional complaints Aller/Immun Reports no additional complaints Physical exam (Primary Care) Vital Signs: Last Vital Signs Temp 98.2 F 06/05/25 09:10 Pulse 92 06/05/25 09:10 Resp 16 06/05/25 09:10 BP 142/80 H 06/05/25 09:10 Pulse Ox 96 06/05/25 09:10 Oxygen Delivery Method Room Air 06/05/25 09:10 BMI result Body Mass Index 35.7 Tobacco/Smoking Status: Tobacco use Status Tobacco use date assessed 06/05/25 06/05/25 09:18 Patient Tobacco Use Status Former Tobacco user 06/05/25 09:12 e-Cigarette/Vaping Use Never Used 06/05/25 09:12 PHQ-9: PHQ-9 Score PHQ-9: Total score 0 06/05/25 09:32 Depression Screening Interpretation: Negative Thrive Assessment: Date of Thrive Assessment Date Thrive assessed 05/29/25 06/05/25 09:12 Currently or been in a relationship where the following occur: No concerns reported Const General: no acute distress and alert Nutritional Appearance: obese Orientation/consciousness: patient oriented x3 HENMT Head: Yes normocephalic Ears: external ears normal General nose exam: Normal external nose present Face and sinus: Yes face symmetric Mouth: Normal oral and palatal mucosa present and moist mucous membranes Eyes General: appearance normal, both eyes and all related structures Neck Neck: Yes full ROM, Yes no lymphadenopathy and Yes supple Thyroid: Thyroid normal (non-palpable) Resp Effort & Inspection: normal respiratory effort and able to speak in complete sentences Auscultation: clear to auscultation bilaterally Cardio Rate: regular rate Rhythm: regular rhythm Heart sounds: S1 normal heart sound present and S2 normal heart sound present Bruits: no abdominal aortic bruits and no carotid bruits GI Palpation (GI): No Abdominal aortic bruit present, Soft to palpation, nontender, no guarding and no masses Auscultation: normal bowel sounds General: Yes no CVA tenderness Back/Spine/Pelvis Back: no CVA tenderness and No back tenderness Skin General skin exam: no rashes or lesions noted Neuro General: patient oriented x3, gait normal, moves all extremities, Normal light touch and pain sensation, no focal motor deficits and CN's II-XI intact bilaterally Cognition (Neuro): normal cognition Gait exam (Neuro): Normal gait present Motor exam (neuro): 5/5 motor strength present throughout Extrem General: Yes normal to inspection, Yes full ROM, Yes no joint enlargement, Yes no pedal edema and Yes normal gait Psych Appearance: grossly normal and well kempt Mental Status: mental status grossly normal Speech and movement: Normal speech and movement present Affect: normal affect Coding Level of Care Code Est Pt Prev Care >65y(09321) Diagnoses Essential hypertension I10 History of atrial fibrillation Z86.79 Pure hypercholesterolemia E78.00 Hyperlipidemia type: pure hypercholesterolemia 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 Assessment & Plan Assessment & Plan (1) Essential hypertension: Code(s): I10 - Essential (primary) hypertension Category: Medical Plan: Increase losartan dose to 100 mg daily, see nurse navigator in a week to check blood pressure after dose adjustment reminded to get his fasting labs done (2) History of atrial fibrillation: Code(s): Z86.79 - Personal history of other diseases of the circulatory system Category: Medical (3) Hyperlipidemia: Code(s): E78.5 - Hyperlipidemia, unspecified Category: Medical Qualifiers: Hyperlipidemia type: pure hypercholesterolemia Qualified Code(s): E78.00 - Pure hypercholesterolemia, unspecified (4) 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 - Encounter for general adult medical examination with abnormal findings Plan The patient's blood pressure was noted to be elevated at 140 mmHg, and it was decided to increase the losartan dose to 100 mg daily. The patient is advised to monitor blood pressure at home and return in a week for a nurse visit to check the blood pressure. Routine lab work has been ordered, including cholesterol, A1c, electrolytes, vitamin D, liver function, and glucose levels. The patient is reminded to complete these fasting labs. A Cologuard test has been ordered for colon cancer screening, and the patient is advised to follow up with the supervisor framing mill yearly.. Vaccinations are reviewed, and a tetanus booster is recommended as the last one was in 2004. The patient is also informed about the availability of the RSV vaccine Continued on pravastatin 40 mg daily at bedtime. Patient was informed and verbally consented to the use of an ambient scribe for clinic note documentation during this visit. Orders: Referrals Cologuard Test Z12.11 - Encounter for screening for malignant neoplasm of colon, Z12.12 - Encounter for screening for malignant neoplasm of rectum Medications: Refilled pravastatin 40 mg PO DAILY 90 tabs 1RF
== END 2025-06-05 10:23 | disposition home or self-care (01) ==
LOC: HO.HMCC 08:34
PROVIDERS: PCP Internal Medicine; Visit Provider Internal Medicine
DX: Z00.01 Encounter for general adult medical examination with abnormal findings (principal); I10 Essential (primary) hypertension; Z68.35 Body mass index [BMI] 35.0-35.9, adult; E66.9 Obesity, unspecified; Z86.79 Personal history of other diseases of the circulatory system; E78.00 Pure hypercholesterolemia, unspecified; Z79.01 Long term (current) use of anticoagulants

== ENCOUNTER 2025-06-13 07:51 | Outpatient (REF) | payer OTHER, SELFPAY ==
[2025-06-13 10:30] LABS: Alanine Aminotransferase 26 U/L (0-40); Anion Gap 13 (12-20); Aspartate Amino Transferase 26 U/L (5-37); Blood Urea Nitrogen 17 mg/dL (9-16); Calcium 9.7 mg/dL (8.4-10.2); Carbon Dioxide 28 mmol/L (22-29); Chloride 105 mmol/L (96-108); Cholesterol 186 mg/dL (<200); Estimated Glomerular Filt Rate > 60; HDL Cholesterol 65 mg/dL (>40); Potassium 4.8 mmol/L (3.3-5.1); Sodium 141 mmol/L (135-145); Triglycerides 78 mg/dL (<150)
[2025-06-13 10:32] LABS: Hemoglobin A1C 156.1327 umol/L; Total Hemoglobin (HGBA1C) 4238.2582 umol/L
[2025-06-13 10:38] LABS: PSA,Total (Free>4and<10) 0.87 ng/mL (0.00-4.00)
== END 2025-06-13 07:52 | disposition home or self-care (01) ==
LOC: HO.HMGCLDS 07:51
PROVIDERS: PCP Internal Medicine; Visit Provider Internal Medicine
DX: Z01.30 Encounter for examination of blood pressure without abnormal findings (principal); I10 Essential (primary) hypertension; I48.20 Chronic atrial fibrillation, unspecified; R73.01 Impaired fasting glucose; E78.00 Pure hypercholesterolemia, unspecified; E66.9 Obesity, unspecified; Z12.5 Encounter for screening for malignant neoplasm of prostate; Z79.899 Other long term (current) drug therapy
CPT/HCPCS: 36415; 80048; 80061; 82306; 83036; 84153; 84450; 84460; 99499